=== PATIENT | male | born 1945 | race Caucasian/White ===

== ENCOUNTER 2018-12-27 08:01 | Inpatient (IN) | payer OTHER ==
[2018-12-27] MEDS ORDERED: ACETAMINOPHEN 1000 MG/100 ML VIAL (NON FORMULARY) IVPB ONE (08:32)
--- NOTE | 2018-12-27 08:32 | PDOC ---
History of Present Illness - General Chief Complaint: SIRS, Suspected/Possible Stated Complaint: DIZZINESS Time Seen by Provider: 12/27/18 08:31 History Source: Patient Exam Limitations: Other (poor historian, prior CVAs) - History of Present Illness Initial Comments: Pt is a 73 yo M, with PMH of HTN and CVA (last was June 2017, with L arm deficit), who is presenting via EMS after a fall. Pt is currently undomiciled and has been living in the library per pt. Pt states he was at the library this morning, when he tripped over a step, landing onto his L side. He denies hitting his head or having LOC. Pt states he then tried to walk to [employer] to use the bathroom, and had incontinence of urine and stool, which is unusual for him. He then had LOC and "remembers waking up on the ground" with EMS. Pt states he was in his usual state of health until this morning, but has been eating at the shelters and "ate about 10 hotdogs last night at the [facility]". Pt denies any recent fevers/chills, headache, vision changes, chest pain, palpitations, SOB, nausea/vomiting, abdominal pain, hemauturia/dysuria, blood in his BMs, or leg swelling. Allergies: NKDA PCP: Pt unsure, has not been seen by an MD since his last CVA Social: Pt denies any cigarette, alcohol, or drug use. Pt denies any recent travel or sick contacts. Surgical: no relevant history. Family: no relevant history. 12/27/18 09:23 12/27/18 11:46 Past History - Travel Traveled outside of the country in the last 30 days: No Close contact w/someone who was outside of country & ill: No - Past Medical History Allergies/Adverse Reactions: Allergies Allergy/AdvReac Type Severity Reaction Status Date / Time No Known Allergies Allergy Verified 12/27/18 08:27 CVA: Yes (x3 lt arm contracted) COPD: No HTN: Yes Hypercholesterolemia: Yes - Suicide/Smoking/Psychosocial Hx Smoking History: Never smoked Have you smoked in the past 12 months: No Information on smoking cessation initiated: No Hx Alcohol Use: No Drug/Substance Use Hx: No Review of Systems - Review of Systems Able to Perform ROS?: Yes Is the patient limited Hebrew proficient: No Constitutional: Yes: Weight Stable. No: Chills, Diaphoresis, Fever, Loss of Appetite, Malaise, Weakness HEENTM: No: Recent change in vision, Nose Congestion, Throat Pain, Throat Swelling, Mouth Swelling Respiratory: No: Cough, Orthopnea, Shortness of Breath Cardiac (ROS): Yes: Syncope. No: Chest Pain, Edema, Irregular Heart Rate, Lightheadedness, Palpitations, Chest Tightness ABD/GI: Yes: Diarrhea. No: Constipated, Nausea, Poor Appetite, Poor Fluid Intake, Vomiting : No: Burning, Dysuria, Hematuria, Pain, Urgency Musculoskeletal: Yes: See HPI, Joint Pain (L shoulder pain 2/2 fall), Muscle Weakness (chronic, 2/2 CVA, L hand and contracture L shoulder). No: Back Pain, Muscle Pain Integumentary: No: Rash Neurological: Yes: See HPI, Pre-Existing Deficit, Dizziness. No: Headache, Numbness, Paresthesia, Weakness Psychiatric: No: Sleep Pattern Change, Change in Appetite Endocrine: No: Increased Urine, Change in Weight Hematologic/Lymphatic: Yes: Blood Clots (CVA x3). No: Anemia, Easy Bleeding, Easy Bruising All Other Systems: Reviewed and Negative *Physical Exam - Vital Signs Last Vital Signs Temp Pulse Resp BP Pulse Ox 100.4 F H 101 H 20 136/76 97 12/27/18 08:25 12/27/18 08:25 12/27/18 08:25 12/27/18 08:25 12/27/18 08:25 - Physical Exam Comments: Tachycardic, febrile. Thin body habitus. Pt covered in urine and feces, clothes and skin are dirty. Pt alert and oriented x3. Contracted L shoulder with weakness in L hand (pt baseline). TTP over L anterior shoulder with no crepitus or obvious deformity. install technician generally intact, muscular strength and sensation intact for pt baseline. No midline spinal tenderness, step-offs, or crepitus. Head normocephalic, atraumatic. Eyes PERRLA, EOMI. Oropharynx without erythema or exudates, no LAD b/l. No nasal congestion, hearing intact. Clear heart sounds, S1/S2, no JVD, or heart murmur. +B/l pitting edema to ankles. Clear lung sounds, no respiratory distress, wheezes, crackles, or accessory muscle use. No abdominal or CVA tenderness to palpation, no rebound, no guarding. Abdomen soft, non-distended, and with normoactive bowel sounds. Skin without jaundice or rash. 12/27/18 09:34 12/27/18 10:32 ED Treatment Course - LABORATORY CBC & Chemistry Diagram: 12/27/18 10:20 12/27/18 10:20 Medical Decision Making - Medical Decision Making Pt was seen at bedside, also will be seen by attending Dr. Graves. Pt presenting with profuse diarrhea (continued in ED) and a fall today. Pt febrile and tachycardic. Will evaluate with labs, non-contrast CT head (r/o bleed) and x- rays of L shoulder and humerus where pt has tenderness. Considering viral vs bacterial colitis, diverticulitis, electrolyte imbalances. Pt denies blood in stool, and has no recent hospitalizations or abx use, however is undomiciled and living in the library and shelters. Provided tylenol and 1 L IV NS for improvement of dehydration and fever. Will continue to reassess pt and monitor for symptomatic improvement. ECG: Sinus tachycardia, intervals WNL (HR 102, MO 146, QRS 80, QTc 419). No TWIs or significant ST segment changes. No prior ECG for comparison. 12/27/18 10:37 CBC and CMP generally WNL Lactic 1.5 Mild anemia, no prior for comparison Pt was taken for CTs and x-rays 12/27/18 11:35 CT negative for acute pathology. Called social work for consultation. Paged Dr. Gonzalez's team for admission. 12/27/18 13:[address] Lema team. Pt stable and resting comfortably. 12/27/18 13:34 *DC/Admit/Observation/Transfer Diagnosis at time of Disposition: Homelessness Closed head injury Qualifiers: Encounter type: initial encounter Qualified Code(s): S09.90XA - Unspecified injury of head, initial encounter Fall Qualifiers: Encounter type: initial encounter Qualified Code(s): W19.XXXA - Unspecified fall, initial encounter Diarrhea Qualifiers: Diarrhea type: unspecified type Qualified Code(s): R19.7 - Diarrhea, unspecified - Discharge Dispostion Condition at time of disposition: Stable Decision to Admit order: Yes - Referrals Referrals: Priscilla Daniels [Primary Care Provider] - - Patient Instructions - Post Discharge Activity
[2018-12-27] MEDS ORDERED: ACETAMINOPHEN INJECTION 100 ML IVPB ONE (09:09)
[2018-12-27] MEDS ORDERED: SODIUM CHLORIDE 1,000 ML IV STA (09:16)
[2018-12-27 10:31] LABS: BASO % 0.6 % (0-2.0); EOS % 0.1 % (0-4.5); HEMATOCRIT 34.6 % (35.4-49); HEMOGLOBIN 11.6 GM/dL (11.7-16.9); LYMPH % 10.2 % (8-40); MCH 34.3 pg (25.7-33.7); MCHC 33.6 g/dl (32.0-35.9); MEAN CELL VOLUME 102.1 fl (80-96); MEAN PLT VOLUME 8.8 fl (7.5-11.1); MONO % 11.7 % (3.8-10.2); NEUT % 77.4 % (42.8-82.8); PLATELET COUNT 259 K/MM3 (134-434); RBC 3.39 M/mm3 (4.00-5.60); RDW 13.9 % (11.9-15.9); WHITE BLOOD COUNT 8.4 K/mm3 (4.0-10.0)
[2018-12-27 10:36] LABS: VENOUS PC02 47.2 mmHg (38-52); VENOUS PH 7.39 (7.31-7.41)
[2018-12-27 10:39] LABS: VENOUS PO2 < 49 mmHg (28-48)
[2018-12-27 10:51] LABS: INR 1.25 (0.83-1.09); PROTHROMBIN TIME (PATIENT) 14.8 SEC (9.7-13.0)
[2018-12-27 10:57] LABS: HYALINE CASTS 4 /lpf (0-8); PH,URINE 8.5 (5.0-8.0); URINE APPEARANCE CLEAR; URINE BACTERIA 3.4 /hpf (NEGATIVE); URINE BILIRUBIN NEGATIVE (NEGATIVE); URINE COLOR YELLOW; URINE GLUCOSE (UA) NEGATIVE (NEGATIVE); URINE KETONE NEGATIVE (NEGATIVE); URINE LEUK ESTERASE 1+ (NEGATIVE); URINE NITRITE NEGATIVE (NEGATIVE); URINE PROTEIN TRACE (NEGATIVE); URINE RBC 11 /hpf (0-4); URINE UROBILINOGEN 0.2 mg/dL (0.2-1.0); URINE WBC 23 /hpf (0-5)
[2018-12-27 11:06] LABS: ALBUMIN 3.8 g/dl (3.4-5.0); ALK PHOS 118 U/L (45-117); ANION GAP 5 MMOL/L (8-16); BILIRUBIN,TOTAL 0.5 mg/dL (0.2-1); BLOOD UREA NITROGEN 19.6 mg/dL (7-18); CALCIUM 9.1 mg/dL (8.5-10.1); CHLORIDE 101 mmol/L (98-107); CO2 30 mmol/L (21-32); GLUCOSE,RANDOM 92 mg/dL (74-106); POTASSIUM 3.9 mmol/L (3.5-5.1); SGOT/AST 47 U/L (15-37); SGPT/ALT 35 U/L (13-61); SODIUM 136 mmol/L (136-145); TOT PROT 8.1 g/dl (6.4-8.2)
--- NOTE | 2018-12-27 11:20 | PDOC ---
Documentation entered by Amira Francois SCRIBE, acting as scribe for Sue Graves MD. Sue Graves MD: This documentation has been prepared by the Priscila barahona Adrianna, SCRIBE, under my direction and personally reviewed by me in its entirety. I confirm that the documentation accurately reflects all work, treatment, procedures, and medical decision making performed by me. Attending Attestation - Resident Resident Name: Abigail Andujar - ED Attending Attestation I have performed the following: I have examined & evaluated the patient, The case was reviewed & discussed with the resident, I agree w/resident's findings & plan, Exceptions are as noted - HPI HPI: 12/27/18 10:28 Mr. Carlos is a 73 yo undomiciled M, with PMH of HTN and CVA (last was June 2017 , with L arm deficit), who is presenting via EMS after a fall. Pt can not give me the name of his PMD, his pharmacy or his medications He lives in the library. Today, while at the library, he tripped over a step and landed on his Left side No head trauma No LOC He attempted to get to [employer] to use the bathroom but could not make it there , he was incontinent of urine and stool (new finding) After having diarrhea, he fell and had a LOC. He "remembers waking up on the ground". Pt denies any recent fevers/chills, headache, chest pain, palpitations, SOB, nausea/vomiting, abdominal pain. 12/27/18 10:44 - Physicial Exam PE: 12/27/18 10:05 GENERAL: The patient is in no acute distress, hard of hearing, discheveled, unkept ENT: Ears normal, nares patent, oropharynx clear without exudates. Dry mucous membranes. NECK: Normal range of motion, supple LUNGS: Breath sounds equal, clear to auscultation bilaterally. No wheezes, and no crackles. HEART:Regular rate and rhythm, normal S1 and S2 ABDOMEN: Soft, nontender, normoactive bowel sounds. EXTREMITIES: LUE contracture, otherwise other extremities normal range of motion. minimal lower extremity edema. NEUROLOGICAL: Flattened left nasolabial fold, normal speech, lue contracture SKIN: no rashes or lesions 12/27/18 10:52 - Medical Decision Making 12/27/18 10:54 73 yo M presenting with diarrhea, syncope, weakness and diarrhea Pt presents with a low grade fever Pt is a poor historian Will do: Sepsis work up CXR UA/U CX Stool studies 12/27/18 11:17 Laboratory Tests 12/27/18 12/27/18 12/27/18 08:59 10:20 10:20 WBC 8.4 Hgb 11.6 L Hct 34.6 L Plt Count 259 INR VBG pH 7.39 POC VBG pCO2 47.2 POC VBG pO2 < 49 H VBG HCO3 28.0 BUN 19.6 H Creatinine 1.0 Urine Nitrite Ur Leukocyte Esterase Urine WBC (Auto) Urine RBC (Auto) 12/27/18 12/27/18 10:20 10:48 WBC Hgb Hct Plt Count INR 1.25 H VBG pH POC VBG pCO2 POC VBG pO2 VBG HCO3 BUN Creatinine Urine Nitrite Negative Ur Leukocyte Esterase 1+ H Urine WBC (Auto) 23 Urine RBC (Auto) 11 CXR- pending CT - pending 12/28/18 07:41 CXR - no infiltrate CT head - no ICH Admitted Of note, just prior to being sent upstairs , pt noted to have temp 104 Zosyn ordered Cultures sent RESPIRATORY MEDICINE PHYSICIAN Diaz alerted to fever Clinical impression: diarrhea, initial presentation fever, initial presentation Sepsis, initial presentation
--- NOTE | 2018-12-27 12:41 | EKG ---
Test Reason : Blood Pressure : / mmHG Vent. Rate : 102 BPM Atrial Rate : 102 BPM P-R Int : 146 ms QRS Dur : 080 ms QT Int : 322 ms P-R-T Axes : 042 006 051 degrees QTc Int : 419 ms POOR DATA QUALITY, INTERPRETATION MAY BE ADVERSELY AFFECTED SINUS TACHYCARDIA NONSPECIFIC ST ABNORMALITY ABNORMAL ECG WHEN COMPARED WITH ECG OF 06-OCT-1999 08:58, VENT. RATE HAS INCREASED BY 38 BPM Confirmed by Lawson Shelton MD ([id number]) on 12/27/2018 12:40:58 PM Referred By: Confirmed By:Lawson Shelton MD
[2018-12-27] MEDS ORDERED: IBUPROFEN 600 MG TABLET (FP) PO ONE ×2 (15:22→15:24)
[2018-12-27] MEDS ORDERED: PIPERACILLIN/TAZOB 3.375 GM 3.375 GM in DEXTROSE 5%-WATER - 50 ML IVPB ONE (15:25)
[2018-12-27] MEDS ORDERED: ACETAMINOPHEN 325 MG TABLET (FP) PO PRN (15:26)
[2018-12-27] MEDS ORDERED: PIPERACILLIN/TAZOB 3.375 GM 3.375 GM/50 ML BAG IVPB ONE (15:27)
--- NOTE | 2018-12-27 16:48 | HP ---
Admitting History and Physical - Primary Care Physician PCP: Priscilla Daniels A - Admission Chief Complaint: Mechanical Fall History of Present Illness: Patient is a 73 y/o male with past medical history of HTN and Multiple CVAs. Patient presented to ER after having mechanical fall yesterday, denies hitting head and denies LOC. Patient states he then tried to walk to [employer] and attempted to use bathroom but became incontinent of urine and fecal contents. While in [employer] he then had an episode of dizziness and fell. Patient is undomiciled, does not know which medication he takes for HTN. 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 Cardiovascular: Yes: HTN - Smoking History Smoking history: Never smoked Have you smoked in the past 12 months: No - Alcohol/Substance Use Hx Alcohol Use: No - Social History Usual Living Arrangement: Yes: Other (Undomiciled) ADL: Independent History of Recent Travel: No Home Medications - Allergies Allergies/Adverse Reactions: Allergies Allergy/AdvReac Type Severity Reaction Status Date / Time No Known Allergies Allergy Verified 12/27/18 08:27 - Home Medications Home Medications: Ambulatory Orders Cefuroxime Axetil [Ceftin -] 500 mg PO BID #4 tablet 01/04/19 Doxycycline Hyclate [Vibramycin -] 100 mg PO BID@1000,1800 #4 capsule 01/04/19 Rosuvastatin [Crestor -] 5 mg PO HS #30 tablet 01/04/19 Tamsulosin HCl [Flomax -] 0.4 mg PO DAILY@0830 #30 cap.er.24h 01/04/19 Review of Systems - Review of Systems Constitutional: reports: Weakness Eyes: reports: No Symptoms HENT: reports: No Symptoms Neck: reports: No Symptoms Cardiovascular: reports: No Symptoms Respiratory: reports: No Symptoms Gastrointestinal: reports: Diarrhea Genitourinary: reports: Dysuria Breasts: reports: No Symptoms Reported Musculoskeletal: reports: Muscle Weakness Integumentary: reports: No Symptoms Neurological: reports: Dizziness Endocrine: reports: No Symptoms Hematology/Lymphatic: reports: No Symptoms Psychiatric: reports: No Symptoms Physical Examination Vital Signs: Vital Signs Temperature 104 F H 12/27/18 15:00 Pulse Rate 104 H 12/27/18 15:00 Respiratory Rate 18 12/27/18 15:00 Blood Pressure 131/74 12/27/18 15:00 O2 Sat by Pulse Oximetry (%) 95 12/27/18 15:00 Constitutional: Yes: No Distress, Calm Eyes: Yes: Conjunctiva Clear HENT: Yes: Atraumatic Cardiovascular: Yes: Tachycardia Respiratory: Yes: Regular, CTA Bilaterally Gastrointestinal: Yes: Normal Bowel Sounds, Soft Musculoskeletal: Yes: Muscle Weakness Extremities: Yes: WNL Edema: No Neurological: Yes: Alert, Pre-Existing Deficit, Weakness Psychiatric: Yes: Alert, Oriented Labs: CBC, BMP 12/27/18 10:20 12/27/18 10:20 Imaging - Results Cat Scan: Report Reviewed Problem List - Problems (1) Diarrhea Assessment/Plan: -Stool Cultures and Cdiff ordered -febrile with temp 104F -ID on board -no leukocytosis -IV hydration Code(s): R19.7 - DIARRHEA, UNSPECIFIED Qualifiers: Diarrhea type: unspecified type Qualified Code(s): R19.7 - Diarrhea, unspecified (2) Fall Assessment/Plan: -Fall risk -Neurology and Cardiology consult -Carotid US -Head CT scan shows large area of encephalomalacia in the right posterior temporal as well as in the right frontal lobe extending to the high convexity cuts also involving the right occipital and parietal lobe with exvacuodilatation of the right occipital horn, no gross acute intracranial pathology -PT Code(s): W19.XXXA - UNSPECIFIED FALL, INITIAL ENCOUNTER Qualifiers: Encounter type: initial encounter Qualified Code(s): W19.XXXA - Unspecified fall, initial encounter (3) Homelessness Assessment/Plan: -SW consult Code(s): Z59.0 - HOMELESSNESS (4) Dysuria Assessment/Plan: -UA shows 1+ leuks -UC pending Code(s): R30.0 - DYSURIA (5) Fever Assessment/Plan: -ID on board -Zosyn -no leukocytosis -BC and UC pending Code(s): R50.9 - FEVER, UNSPECIFIED Assessment/Plan see problem list dvt ppx
--- NOTE | 2018-12-27 17:02 | PN ---
Progress Note (short form) - Note Progress Note: ID consult dictated imp/reccd fever to 104 dysuria no rigors alert homeless diarrhea cultures-blood, urine, stool renal/bladder sonogram ivf empiric antibiotics jeimy brock Problem List - Problems (1) Fever Code(s): R50.9 - FEVER, UNSPECIFIED (2) Dysuria Code(s): R30.0 - DYSURIA (3) Diarrhea Code(s): R19.7 - DIARRHEA, UNSPECIFIED Qualifiers: Diarrhea type: unspecified type Qualified Code(s): R19.7 - Diarrhea, unspecified (4) Homelessness Code(s): Z59.0 - HOMELESSNESS
[2018-12-27] MEDS ORDERED: VANCOMYCIN 1 GRAM (PRE-DOCKED) 1,000 MG/250 ML BAG IVPB SCH (17:15)
[2018-12-27] MEDS ORDERED: DEXTROSE 5%-WATER 100 ML IVPB ONE (18:16)
[2018-12-27] MEDS: CEFTRIAXONE 2 GM in DEXTROSE 5%-WATER 100 ML IVPB SCH (18:20)
[2018-12-27] MEDS: SODIUM CHLORIDE 1,000 ML IV SCH (18:30)
--- NOTE | 2018-12-27 19:31 | CONS ---
DATE OF CONSULTATION: DATE OF DICTATION: 12/27/2018 INFECTIOUS DISEASE CONSULTATION REQUESTING PHYSICIAN: Reina Gonzalez M.D. CONSULTING PHYSICIAN: Valarie Mejia M.D. HISTORY OF PRESENT ILLNESS: This patient I am asked to see for fever. He is a 73-year-old man who is homeless. [place] He has a history of hypertension and CVA. Last had a stroke in June 2017 which has left him with an arm weakness. He went to rehabilitation, where he stayed there for almost a year. He thinks he was discharged in the spring of this year. He presented to the emergency room this morning after he had a fall. He was in the library. Apparently he tripped and landed on his left side. He then tried to walk to the [employer] to use the bathroom, but he could not make it. He was incontinent of urine and stool. He then reports per the EMS notes that he had a loss of consciousness and was found on the floor. He has been living in shelters for many years now and [place]. He denies fevers and chills. He denies headache. He denies chest pain, palpitation. Denies any nausea or vomiting or any further episodes of diarrhea. He does note he has a lot of discomfort when he urinates, which has been going on for several months. He has no neck stiffness and no headache. He has no known drug allergies. His PMD is Dr. Priscilla Daniels at [facility]. PAST MEDICAL HISTORY: Notable for hypertension and CVA. He has a history of hyperlipidemia. SOCIAL HISTORY: He denies cigarette, alcohol, or substance use. He is from [place]. He has no history of any travel, and he is homeless. REVIEW OF SYSTEMS: He denies headache. He is not aware he has fever. He has no chills or rigors. Temperature was 104. He has no change in vision. He has no sore throat. He has no cough or shortness of breath. He does note that he had diarrhea which is resolved, and he does note that he has discomfort on urination. PHYSICAL EXAMINATION: Vital Signs: His T-max was 104. Current temperature now is 101.4, pulse of 104, blood pressure 131/74, respiratory rate of 18. He is saturating 95% on room air. HEENT: Normocephalic. Eyes are anicteric. He has no conjunctival hemorrhages. He has no thrush. He has no pharyngitis. Neck: Supple. He has no meningeal signs. Lungs: Clear to auscultation. Heart: Regular rate and rhythm. Abdomen: Soft, nontender. He has very minimal suprapubic discomfort. He has no testicular swelling. Extremities: Without edema. Skin: He has no rash. He has no skin breakdown or skin tears. LABORATORY: Notable for white count of 8.4, hemoglobin 11.6, platelets of 259. INR is 1.2, BUN and creatinine are 19 and 1. LFTs are notable for AST of 47 and alkaline phosphatase of 118. Troponins are pending. Urinalysis has 1+ leukocytes and 23 white cells. Urine and blood cultures are pending. Head CT is noted for prior infarct. Chest x-rays without any infiltrate, and x-ray of the humerus reveals no fracture. IMPRESSION: In summary, this is an elderly man with high-grade fever. He is quite asymptomatic, does not even feel hot, has no rigors, is not hypotensive, and has no headache. His labs are notable for normal white count and some pyuria. Would suggest at this time that we treat him with vancomycin 1 dose and ceftriaxone to cover for urinary pathogens. Would obtain a renal bladder sonogram as he states he has discomfort on urination and continue intravenous fluids. Further recommendations to follow based on his clinical course. Lauri [id number]
[2018-12-27 21:00] VITALS: BMI 20.2
[2018-12-27] MEDS: HEPARIN NA (PORCINE) 5,000 UNITS/ML 1ML VIAL SQ SCH (21:59)
[2018-12-27] MEDS ORDERED: SODIUM CHLORIDE 250 ML IV STA (23:39)
[2018-12-28] MEDS: SODIUM CHLORIDE 1,000 ML IV SCH ×2 (06:23→22:14)
[2018-12-28] MEDS ORDERED: INSULIN (NOVOLOG) ASPART 100 UNITS/ML 10ML VIAL ONE ×2 (06:41→12:10)
[2018-12-28 07:12] LABS: BASO % 0.2 % (0-2.0); HEMATOCRIT 33.9 % (35.4-49); HEMOGLOBIN 11.1 GM/dL (11.7-16.9); MCH 33.8 pg (25.7-33.7); MCHC 32.8 g/dl (32.0-35.9); MEAN CELL VOLUME 103.1 fl (80-96); MEAN PLT VOLUME 9.3 fl (7.5-11.1); MONO % 5.6 % (3.8-10.2); NEUT % 91.2 % (42.8-82.8); PLATELET COUNT 165 K/MM3 (134-434); RBC 3.29 M/mm3 (4.00-5.60); RDW 13.9 % (11.9-15.9); WHITE BLOOD COUNT 18.6 K/mm3 (4.0-10.0)
[2018-12-28 07:29] LABS: ALBUMIN 2.7 g/dl (3.4-5.0); BILIRUBIN,TOTAL 0.6 mg/dL (0.2-1); CALCIUM 7.9 mg/dL (8.5-10.1); CREATININE 1.3 mg/dL (0.55-1.3); MAGNESIUM 1.6 mg/dL (1.8-2.4); PHOSPHOROUS 3.3 mg/dL (2.5-4.9); POTASSIUM 3.7 mmol/L (3.5-5.1); TOT PROT 6.4 g/dl (6.4-8.2)
--- NOTE | 2018-12-28 10:38 | CONSULT ---
Consult - text type - Consultation Consultation Note: NEUROLOGY CONSULT GREATLY APPRECIATED: This 73 yo RH homeless man has pmhx CVA x 3 with residual left sided hemiparesis and HTN. Admitted after two falls, one he describes without prodromata or LOC in which he "missed the step" walking down a step and fell on his left side. On a second occasion, he was warned by "lightheadedness" while ambulating to a public restroom and fell to the floor with possible LOC. Head CT (reviewed): Moderate diffuse cerebral atrophy with ex vacuo ventricular dilation. Large area of encephalomalacia in R posterior temporal, parietal and occiptal lobe (c/w old right MCA-territory CVA). Calcified intracranial vessels. Carotid duplex: Mod plaques at RCC and LCC without significant stenosis EKG sinus tach WBC 8.4 -> 18.6; MCV 103.1; TSH 0.83; MG= 1.6; Phos 3.3; Urine WBC= 23 JILLIAN: BP 80/47-> 100/55; T 98.6-104; Neg Kernig's. Cor reg. No bruit. Excoriation to back of neck. No evidence of head trauma. NEURO: Awake, alert, [place]. Ox [facility]. December ", Wed or " 2018. TRUMP. Poor reversals. 2/3 recall @ 3 min. + glabella. CNII-CNXII: Reduced threat to blink from left. EOM's full with full mcgarry. No facial. Gag ok. Motor: Spastic hemiparesis on L arm > leg. Otherwise strength normal. Hyperreflexic L > R with AJ's present. Toes downgoing. Coordination: No R FTN dystaxia. Sensation: Reduced vibration to ankles. Romberg positive. Gait: Wide based, sl waddle. Impression: Mild B/L cerebreal dysfunction. Multifocal gait ataxia with contributions of: 1. Old extensive R CVA with spastic left hemiparesis 2. Peripheral Neuropathy (nutritional) 3. R/O arrythmia Worsened by Toxic-Metabolic Encephalopathy (? sepsis). R/O Wernicke's (can cause hypotension and hyperthermia). Suggest: Continue antibiotics and hydration per ID Orthostatic BP's Add thiamine 250 mg po IVPB q8H x 3 days Check B12, A1c. Replenish lytes and monitor. Await cardiology eval fitness services manager for placement. Thank you very much, Robert Young MD
[2018-12-28 11:38] LABS: ANISOCYTOSIS 0; MACROCYTOSIS 1+; OVALOCYTE 1+
[2018-12-28] MEDS ORDERED: DEXTROSE 5%-WATER 100 ML IVPB ONE (11:50)
[2018-12-28] MEDS: CEFTRIAXONE 2 GM in DEXTROSE 5%-WATER 100 ML IVPB SCH (11:57)
[2018-12-28] MEDS: HEPARIN NA (PORCINE) 5,000 UNITS/ML 1ML VIAL SQ SCH ×2 (11:59→22:15)
[2018-12-28 12:05] LABS: PLATELET ESTIMATE ADEQUATE
[2018-12-28] MEDS: THIAMINE HCL 200 MG/2 ML VIAL IVPB SCH ×2 (14:55→22:13)
--- NOTE | 2018-12-28 15:01 | PN ---
Progress Note (short form) - Note Progress Note: much more alert, afebrile no more fever persistent dysuria diarrhea has resolved Vital Signs Period Temp Pulse Resp BP Sys/Cano Pulse Ox Last 24 Hr 98.0 F-101.5 F 61-93 18-18 80-120/42-61 95-98 cor-rrr lungs clear abd soft,nt +suprapubic pain ext no edema renal/bladder sono-?debris in bladder CBC, BMP 12/28/18 06:34 12/28/18 06:34 Microbiology 12/27/18 10:20 Blood - Peripheral Venous Blood Culture - Preliminary NO GROWTH OBTAINED AFTER 24 HOURS, INCUBATION TO CONTINUE FOR 4 DAYS. 12/27/18 10:20 Blood - Peripheral Venous Blood Culture - Preliminary NO GROWTH OBTAINED AFTER 24 HOURS, INCUBATION TO CONTINUE FOR 4 DAYS. 12/27/18 10:48 Urine - Urine Clean Catch Urine Culture - Final NO GROWTH OBTAINED imp/reccd leukocytosis fever to [address] abd/pelvis continue ceftriaxone Problem List - Problems (1) Fever Code(s): R50.9 - FEVER, UNSPECIFIED (2) Dysuria Code(s): R30.0 - DYSURIA (3) Diarrhea Code(s): R19.7 - DIARRHEA, UNSPECIFIED Qualifiers: Diarrhea type: unspecified type Qualified Code(s): R19.7 - Diarrhea, unspecified (4) Homelessness Code(s): Z59.0 - HOMELESSNESS
--- NOTE | 2018-12-28 15:46 | CON.CARD ---
Consult Consult Specialty:: Cardiology Referred by:: Torey Reason for Consultation:: Dizziness - History of Present Illness Chief Complaint: Fall History of Present Illness: 73 year old male with a pmhx of htn and cva here with fall and dizziness. As per patient who is a poor historian, he was headed [place] [employer] when he developed incontinent (both bowel and urine). He then felt dizzy and fell. Denies any LOC or head trauma. No chest pain, sob, or palpitations. No pnd, orthopnea, or edema. Denies any cardiac history. Does not know his meds (says his friend has them). Denies etoh or drug use. 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 Cardio/Vascular: Yes: HTN - Alcohol/Substance Use Hx Alcohol Use: No - Smoking History Smoking history: Never smoked Have you smoked in the past 12 months: No - Social History ADL: Independent History of Recent Travel: No Home Medications - Allergies Allergies/Adverse Reactions: Allergies Allergy/AdvReac Type Severity Reaction Status Date / Time No Known Allergies Allergy Verified 12/27/18 08:27 - Home Medications Home Medications: Ambulatory Orders NK [No Known Home Medication] 12/27/18 Vital Signs: Vital Signs Temperature 98.6 F 12/28/18 07:10 Pulse Rate 85 12/28/18 11:30 Respiratory Rate 18 12/28/18 07:10 Blood Pressure 90/46 L 12/28/18 11:30 O2 Sat by Pulse Oximetry (%) 98 12/27/18 21:00 Constitutional: Yes: No Distress, Poor Hygeine Neck: Yes: Supple Respiratory: Yes: CTA Bilaterally Gastrointestinal: Yes: Soft Cardiovascular: Yes: Regular Rate and Rhythm JVD: No Carotid Bruit: No PMI: Non-Displaced Heart Sounds: Yes: S1, S2 Murmur: No: Systolic Murmur Edema: No - Other Data Labs, Other Data: CBC, BMP 12/28/18 06:34 12/28/18 06:34 INR, PTT INR 1.25 (0.83-1.09) H 12/27/18 10:20 Troponin, BNP 12/27/18 10:20 Troponin I < 0.02 Troponin, BNP 12/27/18 10:20 Troponin I < 0.02 Imaging - Results Chest X-ray: Report Reviewed EKG: Image Reviewed Problem List - Problems (1) Fall Code(s): W19.XXXA - UNSPECIFIED FALL, INITIAL ENCOUNTER Qualifiers: Encounter type: initial encounter Qualified Code(s): W19.XXXA - Unspecified fall, initial encounter Assessment/Plan 73 year old male with a pmhx of htn and cva here with fall and dizziness. As per patient who is a poor historian, he was headed [place] [employer] when he developed incontinent (both bowel and urine). He then felt dizzy and fell. Denies any LOC or head trauma. No chest pain, sob, or palpitations. No pnd, orthopnea, or edema. Denies any cardiac history. Does not know his meds (says his friend has them). Denies etoh or drug use. 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 1) Dizziness -Likely in the setting of hypovolemia as seen with low SBP/orthostatics in setting of possible infection given elevated wbc 18 and febrile with diarrhea. IVF's Abx and infection work up as per primary team. -No chest pain or signs of chf on exam. EKG no acute changes. Carotids no stenosis. No significant murmurs on exam. -Can have an echocardiogram during admission.
--- NOTE | 2018-12-28 16:49 | PN ---
Progress Note, Physician Chief Complaint: Mechanical Fall Fever Leukocytosis History of Present Illness: Previous notes and events reviewed awake and alert NAD complain of urinary frequency and dysuria afebrile today leukocytosis - Current Medication List Current Medications: Active Medications Acetaminophen (Tylenol -) 650 mg PO Q4H PRN PRN Reason: FEVER Heparin Sodium (Porcine) (Heparin -) 5,000 unit SQ BID [facility] Last Admin: 12/28/18 11:59 Dose: 5,000 unit Ceftriaxone Sodium 2 gm/ (Dextrose) 100 mls @ 200 mls/hr IVPB DAILY [facility]; Protocol Last Admin: 12/28/18 11:57 Dose: 200 mls/hr Vancomycin HCl (Vancomycin (Pre-Docked)) 1,000 mg in 250 mls @ 166.667 mls/hr IVPB ONCE [facility]; Protocol Stop: 12/28/18 17:14 Last Admin: 12/27/18 18:42 Dose: 166.667 mls/hr Sodium Chloride (Normal Saline -) 1,000 mls @ 75 mls/hr IV ASDIR [facility] Last Admin: 12/28/18 06:23 Dose: 75 mls/hr Thiamine HCl (Vitamin B1 Injection -) 250 mg IVPB TID [facility] Stop: 12/31/18 13:59 Last Admin: 12/28/18 14:55 Dose: 250 mg - Objective Vital Signs: Vital Signs Temperature 98.6 F 12/28/18 07:10 Pulse Rate 85 12/28/18 11:30 Respiratory Rate 18 12/28/18 07:10 Blood Pressure 90/46 L 12/28/18 11:30 O2 Sat by Pulse Oximetry (%) 98 12/27/18 21:00 Constitutional: Yes: No Distress, Calm Eyes: Yes: Conjunctiva Clear HENT: Yes: Atraumatic Cardiovascular: Yes: Regular Rate and Rhythm Respiratory: Yes: Regular, CTA Bilaterally Gastrointestinal: Yes: Normal Bowel Sounds, Soft, Tenderness (suprapubic) Genitourinary: Yes: Incontinence Musculoskeletal: Yes: Muscle Weakness Extremities: Yes: WNL Edema: No Neurological: Yes: Alert, Weakness (L side deficit) Psychiatric: Yes: Alert Labs: CBC, BMP 12/28/18 06:34 12/28/18 06:34 INR, PTT INR 1.25 (0.83-1.09) H 09/03/19 10:20 Microbiology 12/27/18 10:20 Blood - Peripheral Venous Blood Culture - Preliminary NO GROWTH OBTAINED AFTER 24 HOURS, INCUBATION TO CONTINUE FOR 4 DAYS. 12/27/18 10:20 Blood - Peripheral Venous Blood Culture - Preliminary NO GROWTH OBTAINED AFTER 24 HOURS, INCUBATION TO CONTINUE FOR 4 DAYS. 12/27/18 10:48 Urine - Urine Clean Catch Urine Culture - Final NO GROWTH OBTAINED Problem List - Problems (1) Diarrhea Assessment/Plan: -Stool Cultures and Cdiff pending -resolved -ID on board -leukocytosis -IV hydration Code(s): R19.7 - DIARRHEA, UNSPECIFIED Qualifiers: Diarrhea type: unspecified type Qualified Code(s): R19.7 - Diarrhea, unspecified (2) Fall Assessment/Plan: -Fall risk -Neurology and Cardiology consult -Carotid US shows moderate to large plaque with calcificationsat the right common carotid bifurcation/bulb without evidence of hemodynamically significant stenosis, moderate size plaque to at denny left common carotid bifurcation buld without evidence of hemodynamically significant stenosis -Head CT scan shows large area of encephalomalacia in the right posterior temporal as well as in the right frontal lobe extending to the high convexity cuts also involving the right occipital and parietal lobe with exvacuodilatation of the right occipital horn, no gross acute intracranial pathology -PT Code(s): W19.XXXA - UNSPECIFIED FALL, INITIAL ENCOUNTER Qualifiers: Encounter type: initial encounter Qualified Code(s): W19.XXXA - Unspecified fall, initial encounter (3) Homelessness Assessment/Plan: -SW consult Code(s): Z59.0 - HOMELESSNESS (4) Dysuria Assessment/Plan: -UA shows 1+ leuks -UC neg -Bladder US shws moderately distended urinary bladder wall without thickening, there are debris lying posteriorly--Urology consult Code(s): R30.0 - DYSURIA (5) Fever Assessment/Plan: -ID on board -Vancomycin and Ceftriaxone -leukocytosis WBC 18.5 -BC and UC neg -Abd/Pelvic CT scan Code(s): R50.9 - FEVER, UNSPECIFIED Assessment/Plan see problem list dvt ppx
[2018-12-28] MEDS: ROSUVASTATIN CA 5 MG TABLET (FP) PO SCH (22:13)
[2018-12-29] MEDS: THIAMINE HCL 200 MG/2 ML VIAL IVPB SCH ×3 (05:15→21:25)
[2018-12-29 07:39] LABS: HEMATOCRIT 35.2 % (35.4-49); HEMOGLOBIN 11.8 GM/dL (11.7-16.9); MCH 34.6 pg (25.7-33.7); MCHC 33.6 g/dl (32.0-35.9); MEAN PLT VOLUME 9.6 fl (7.5-11.1); PLATELET COUNT 140 K/MM3 (134-434); RBC 3.42 M/mm3 (4.00-5.60); RDW 14.1 % (11.9-15.9); WHITE BLOOD COUNT 10.1 K/mm3 (4.0-10.0)
[2018-12-29 07:55] LABS: ALBUMIN 2.6 g/dl (3.4-5.0); BILIRUBIN,TOTAL 0.3 mg/dL (0.2-1); BLOOD UREA NITROGEN 21.2 mg/dL (7-18); CALCIUM 8.2 mg/dL (8.5-10.1); CREATININE 0.9 mg/dL (0.55-1.3); POTASSIUM 3.5 mmol/L (3.5-5.1); TOT PROT 6.5 g/dl (6.4-8.2)
[2018-12-29] MEDS ORDERED: DEXTROSE 5%-WATER 100 ML IVPB ONE (09:37)
[2018-12-29] MEDS: CEFTRIAXONE 2 GM in DEXTROSE 5%-WATER 100 ML IVPB SCH (09:56)
[2018-12-29] MEDS: HEPARIN NA (PORCINE) 5,000 UNITS/ML 1ML VIAL SQ SCH ×2 (09:57→21:25)
--- NOTE | 2018-12-29 12:50 | PN ---
Progress Note, Physician Chief Complaint: Mechanical Fall Fever Leukocytosis History of Present Illness: Previous notes and events reviewed awake and alert NAD complain of urinary frequency and dysuria low grade fever this morning leukocytosis--WBC trending down to 10.1 - Current Medication List Current Medications: Active Medications Acetaminophen (Tylenol -) 650 mg PO Q4H PRN PRN Reason: FEVER Heparin Sodium (Porcine) (Heparin -) 5,000 unit SQ BID [facility] Last Admin: 12/29/18 09:57 Dose: 5,000 unit Ceftriaxone Sodium 2 gm/ (Dextrose) 100 mls @ 200 mls/hr IVPB DAILY [facility]; Protocol Last Admin: 12/29/18 09:56 Dose: 200 mls/hr Sodium Chloride (Normal Saline -) 1,000 mls @ 75 mls/hr IV ASDIR [facility] Last Admin: 12/28/18 22:14 Dose: 75 mls/hr Rosuvastatin Calcium (Crestor -) 5 mg PO HS [facility] Last Admin: 12/28/18 22:13 Dose: 5 mg Thiamine HCl (Vitamin B1 Injection -) 250 mg IVPB TID [facility] Stop: 12/31/18 13:59 Last Admin: 12/29/18 05:15 Dose: 250 mg - Objective Vital Signs: Vital Signs Temperature 99.9 F H 12/29/18 09:38 Pulse Rate 74 12/29/18 09:38 Respiratory Rate 18 12/29/18 09:38 Blood Pressure 122/74 12/29/18 09:38 O2 Sat by Pulse Oximetry (%) 95 12/29/18 09:00 Constitutional: Yes: No Distress Eyes: Yes: Conjunctiva Clear HENT: Yes: Atraumatic Cardiovascular: Yes: Regular Rate and Rhythm Respiratory: Yes: Regular, CTA Bilaterally Gastrointestinal: Yes: Normal Bowel Sounds, Soft Genitourinary: Yes: Incontinence Musculoskeletal: Yes: Muscle Weakness Extremities: Yes: WNL Edema: No Neurological: Yes: Alert, Pre-Existing Deficit, Weakness (L Side deficit) Psychiatric: Yes: Alert Labs: CBC, BMP 12/29/18 06:20 12/29/18 06:20 INR, PTT INR 1.25 (0.83-1.09) H 12/27/18 10:20 Microbiology 12/28/18 12:53 Stool Salmonella/Shigella Culture - Preliminary NO ENTERIC PATHOGENS, 24 HOURS, ON PRIMARY PLATES 12/28/18 12:53 Stool Yersinia Culture - Preliminary NO ENTERIC PATHOGENS, 24 HOURS, ON PRIMARY PLATES 12/28/18 12:53 Stool Vibrio Culture - Final NO GROWTH OF VIBRIO SPECIES OBTAINED 12/28/18 12:53 Stool Escherichia coli 0157 Culture - Final NO GROWTH OF E COLI 0157 OBTAINED 12/27/18 10:20 Blood - Peripheral Venous Blood Culture - Preliminary NO GROWTH OBTAINED AFTER 48 HOURS, INCUBATION TO CONTINUE FOR 3 DAYS. 12/27/18 10:20 Blood - Peripheral Venous Blood Culture - Preliminary NO GROWTH OBTAINED AFTER 48 HOURS, INCUBATION TO CONTINUE FOR 3 DAYS. 12/27/18 10:48 Urine - Urine Clean Catch Urine Culture - Final NO GROWTH OBTAINED Problem List - Problems (1) Diarrhea Assessment/Plan: -Stool Cultures and Cdiff neg -resolved -ID on board -leukocytosis -IV hydration Code(s): R19.7 - DIARRHEA, UNSPECIFIED Qualifiers: Diarrhea type: unspecified type Qualified Code(s): R19.7 - Diarrhea, unspecified (2) Fall Assessment/Plan: -Fall risk -Neurology and Cardiology consult -Carotid US shows moderate to large plaque with calcificationsat the right common carotid bifurcation/bulb without evidence of hemodynamically significant stenosis, moderate size plaque to at denny left common carotid bifurcation buld without evidence of hemodynamically significant stenosis -Head CT scan shows large area of encephalomalacia in the right posterior temporal as well as in the right frontal lobe extending to the high convexity cuts also involving the right occipital and parietal lobe with exvacuodilatation of the right occipital horn, no gross acute intracranial pathology -PT Code(s): W19.XXXA - UNSPECIFIED FALL, INITIAL ENCOUNTER Qualifiers: Encounter type: initial encounter Qualified Code(s): W19.XXXA - Unspecified fall, initial encounter (3) Homelessness Assessment/Plan: -SW consult Code(s): Z59.0 - HOMELESSNESS (4) Dysuria Assessment/Plan: -UA shows 1+ leuks -UC neg -Bladder US shws moderately distended urinary bladder wall without thickening, there are debris lying posteriorly--Urology consult Code(s): R30.0 - DYSURIA (5) Fever Assessment/Plan: -ID on board -Vancomycin and Ceftriaxone -leukocytosis WBC 10.1 -BC and UC neg -Abd/Pelvic CT scan Code(s): R50.9 - FEVER, UNSPECIFIED Assessment/Plan see problem list dvt ppx
--- NOTE | 2018-12-29 12:58 | CON.GU ---
Consult Consult Specialty:: Reason for Consultation:: bladder debris - History of Present Illness History of Present Illness: 73 y/o male with past medical history of HTN and Multiple CVAs. Patient presented to ER after having mechanical fall yesterday, denies hitting head and denies LOC. Patient states he then tried to walk to [employer] and attempted to use bathroom but became incontinent of urine and fecal contents. While in [employer] he then had an episode of dizziness and fell. Patient is undomiciled, does not know which medication he takes for HTN. cons req for bladder debris on u/s. 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 Cardio/Vascular: Yes: HTN - Alcohol/Substance Use Hx Alcohol Use: No - Smoking History Smoking history: Never smoked Have you smoked in the past 12 months: No - Social History ADL: Independent History of Recent Travel: No Home Medications - Allergies Allergies/Adverse Reactions: Allergies Allergy/AdvReac Type Severity Reaction Status Date / Time No Known Allergies Allergy Verified 12/27/18 08:27 - Home Medications Home Medications: Ambulatory Orders NK [No Known Home Medication] 12/27/18 Physical Exam- Vital Signs: Vital Signs Temperature 99.9 F H 12/29/18 09:38 Pulse Rate 74 12/29/18 09:38 Respiratory Rate 18 12/29/18 09:38 Blood Pressure 122/74 12/29/18 09:38 O2 Sat by Pulse Oximetry (%) 95 12/29/18 09:00 Labs: CBC, BMP 12/29/18 06:20 12/29/18 06:20 Imaging - Results Ultrasound: Report Reviewed Problem List - Problems (1) Sterile pyuria Assessment/Plan: iv abxs, await CT AP Code(s): N39.0 - URINARY TRACT INFECTION, SITE NOT SPECIFIED (2) Dysuria Code(s): R30.0 - DYSURIA
--- NOTE | 2018-12-29 13:47 | ECHO ---
Name: PHILLIP SHANA Exam:Adult Echocardiogram Study Date: 12/29/2018 08:05 AM Age: 73 yrs Reason For Study: near syncope Height: 71 in Weight: 145 lb BSA: 1.8 m2 MMode/2D Measurements & Calculations IVSd: 0.73 cm Ao root diam: 2.6 cm LVIDd: 3.5 cm LA dimension: 2.2 cm LVIDs: 2.0 cm LVPWd: 0.78 cm EDV(Teich): 51.9 ml LVOT diam: 2.0 cm ESV(Teich): 13.3 ml LAV (MOD-bp): 39.9 ml Doppler Measurements & Calculations MV E max cy: 83.9 cm/sec Ao V2 max: 156.1 cm/sec MV A max cy: 94.1 cm/sec Ao max P.7 mmHg MV E/A: 0.89 AI P1/2t: 460.2 msec MV dec time: 0.19 sec NATHALIA(V,D): 2.4 cm2 AI max cy: 451.6 cm/sec LV V1 max P.9 mmHg AI max P.6 mmHg LV V1 max: 121.3 cm/sec AI dec slope: 287.4 cm/sec2 MR max cy: 526.7 cm/sec TR max cy: 240.6 cm/sec MR max P.8 mmHg TR max P.3 mmHg PA V2 max: 95.0 cm/sec Med Peak E' Cy: 8.6 cm/sec PA max P.6 mmHg Med E/e': 9.8 Lat Peak E' Cy: 9.9 cm/sec Lat E/e': 8.5 Procedure A complete two-dimensional transthoracic echocardiogram was performed (2D, M-mode, Doppler and color flow Doppler). Left Ventricle The left ventricular size, thickness and function are normal. The left ventricular ejection fraction is normal. Ejection Fraction = 55-60%. The left ventricular wall motion is normal. Right Ventricle The right ventricle is normal in size and function. Atria Normal left and right atrial size and function. Mitral Valve There is mild mitral regurgitation. Tricuspid Valve There is trace tricuspid regurgitation. Right ventricular systolic pressure is normal. Aortic Valve No hemodynamically significant valvular aortic stenosis. Trace aortic regurgitation. Pulmonic Valve There is no pulmonic valvular regurgitation. Great Vessels The aortic root is normal size. Pericardium/Pleura There is no pericardial effusion. Interpretation Summary The left ventricular size, thickness and function are normal The right ventricle is normal in size and function. There is mild mitral regurgitation. There is trace tricuspid regurgitation. Trace aortic regurgitation. MD Tre Holt 12/29/2018 01:46 PM
--- NOTE | 2018-12-29 14:54 | PN ---
Progress Note, Physician Chief Complaint: No events overnight Complaints of dysuria. No chest pain or sob. History of Present Illness: 73 year old male with a pmhx of htn and cva here with fall and dizziness. As per patient who is a poor historian, he was headed [place] [employer] when he developed incontinent (both bowel and urine). He then felt dizzy and fell. Denies any LOC or head trauma. No chest pain, sob, or palpitations. No pnd, orthopnea, or edema. Denies any cardiac history. Does not know his meds (says his friend has them). Denies etoh or drug use. 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 - Current Medication List Current Medications: Active Medications Acetaminophen (Tylenol -) 650 mg PO Q4H PRN PRN Reason: FEVER Heparin Sodium (Porcine) (Heparin -) 5,000 unit SQ BID [facility] Last Admin: 12/29/18 09:57 Dose: 5,000 unit Ceftriaxone Sodium 2 gm/ (Dextrose) 100 mls @ 200 mls/hr IVPB DAILY [facility]; Protocol Last Admin: 12/29/18 09:56 Dose: 200 mls/hr Sodium Chloride (Normal Saline -) 1,000 mls @ 75 mls/hr IV ASDIR [facility] Last Admin: 12/28/18 22:14 Dose: 75 mls/hr Rosuvastatin Calcium (Crestor -) 5 mg PO HS [facility] Last Admin: 12/28/18 22:13 Dose: 5 mg Thiamine HCl (Vitamin B1 Injection -) 250 mg IVPB TID [facility] Stop: 12/31/18 13:59 Last Admin: 12/29/18 13:06 Dose: 250 mg - Objective Vital Signs: Vital Signs Temperature 99.9 F H 12/29/18 09:38 Pulse Rate 74 12/29/18 09:38 Respiratory Rate 18 12/29/18 09:38 Blood Pressure 122/74 12/29/18 09:38 O2 Sat by Pulse Oximetry (%) 95 12/29/18 09:00 Constitutional: Yes: No Distress Neck: Yes: Supple Cardiovascular: Yes: Regular Rate and Rhythm, S1, S2. No: JVD, Murmur Respiratory: Yes: CTA Bilaterally Gastrointestinal: Yes: Soft Edema: No Labs: CBC, BMP 12/29/18 06:20 12/29/18 06:20 INR, PTT INR 1.25 (0.83-1.09) H 12/27/18 10:20 Problem List - Problems (1) Fall Code(s): W19.XXXA - UNSPECIFIED FALL, INITIAL ENCOUNTER Qualifiers: Encounter type: initial encounter Qualified Code(s): W19.XXXA - Unspecified fall, initial encounter Assessment/Plan 73 year old male with a pmhx of htn and cva here with fall and dizziness. As per patient who is a poor historian, he was headed to [employer] when he developed incontinent (both bowel and urine). He then felt dizzy and fell. Denies any LOC or head trauma. No chest pain, sob, or palpitations. No pnd, orthopnea, or edema. Denies any cardiac history. Does not know his meds (says his friend has them). Denies etoh or drug use. 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 1) Dizziness -Likely in the setting of hypovolemia as seen with low SBP/orthostatics in setting of possible infection given elevated wbc 18 and febrile with diarrhea. IVF's Abx and infection work up as per primary team. -No chest pain or signs of chf on exam. EKG no acute changes. Carotids no stenosis. No significant murmurs on exam. -Echocardiogram demonstrated normal LVEF and no significant valve disease Will sign off at this time.
--- NOTE | 2018-12-29 15:42 | PN ---
Progress Note (short form) - Note Progress Note: doing well eating lunch just got back from ct scan still with dysuria Vital Signs Period Temp Pulse Resp BP Sys/Cano Pulse Ox Last 24 Hr 98.2 F-99.9 F 68-88 18-18 110-140/55-74 95-98 cor-rrr lungs clear abd soft,nt ext no edema CBC, BMP 12/29/18 06:20 12/29/18 06:20 Microbiology 12/28/18 12:53 Stool Salmonella/Shigella Culture - Preliminary NO ENTERIC PATHOGENS, 24 HOURS, ON PRIMARY PLATES 12/28/18 12:53 Stool Yersinia Culture - Preliminary NO ENTERIC PATHOGENS, 24 HOURS, ON PRIMARY PLATES 12/28/18 12:53 Stool Vibrio Culture - Final NO GROWTH OF VIBRIO SPECIES OBTAINED 12/28/18 12:53 Stool Escherichia coli 0157 Culture - Final NO GROWTH OF E COLI 0157 OBTAINED 12/27/18 10:20 Blood - Peripheral Venous Blood Culture - Preliminary NO GROWTH OBTAINED AFTER 48 HOURS, INCUBATION TO CONTINUE FOR 3 DAYS. 12/27/18 10:20 Blood - Peripheral Venous Blood Culture - Preliminary NO GROWTH OBTAINED AFTER 48 HOURS, INCUBATION TO CONTINUE FOR 3 DAYS. 12/27/18 10:48 Urine - Urine Clean Catch Urine Culture - Final NO GROWTH OBTAINED Current Medications Acetaminophen (Tylenol -) 650 mg PO Q4H PRN PRN Reason: FEVER Heparin Sodium (Porcine) (Heparin -) 5,000 unit SQ BID [facility] Last Admin: 12/29/18 09:57 Dose: 5,000 unit Ceftriaxone Sodium 2 gm/ (Dextrose) 100 mls @ 200 mls/hr IVPB DAILY [facility]; Protocol Last Admin: 12/29/18 09:56 Dose: 200 mls/hr Sodium Chloride (Normal Saline -) 1,000 mls @ 75 mls/hr IV ASDIR [facility] Last Admin: 12/28/18 22:14 Dose: 75 mls/hr Rosuvastatin Calcium (Crestor -) 5 mg PO HS [facility] Last Admin: 12/28/18 22:13 Dose: 5 mg Thiamine HCl (Vitamin B1 Injection -) 250 mg IVPB TID [facility] Stop: 12/31/18 13:59 Last Admin: 12/29/18 13:06 Dose: 250 mg imp/reccd leukocytosis fever to [address] abd/pelvis continue ceftriaxone day #3 Problem List - Problems (1) Fever Code(s): R50.9 - FEVER, UNSPECIFIED (2) Dysuria Code(s): R30.0 - DYSURIA (3) Diarrhea Code(s): R19.7 - DIARRHEA, UNSPECIFIED Qualifiers: Diarrhea type: unspecified type Qualified Code(s): R19.7 - Diarrhea, unspecified (4) Homelessness Code(s): Z59.0 - HOMELESSNESS
[2018-12-29] MEDS: SODIUM CHLORIDE 1,000 ML IV SCH (21:24)
[2018-12-29] MEDS: ROSUVASTATIN CA 5 MG TABLET (FP) PO SCH (21:25)
[2018-12-30] MEDS: THIAMINE HCL 200 MG/2 ML VIAL IVPB SCH ×2 (05:24→15:00)
[2018-12-30 07:46] LABS: ALBUMIN 2.7 g/dl (3.4-5.0); BILIRUBIN,TOTAL 0.3 mg/dL (0.2-1); BLOOD UREA NITROGEN 15.6 mg/dL (7-18); CALCIUM 8.4 mg/dL (8.5-10.1); CREATININE 0.8 mg/dL (0.55-1.3); HEMATOCRIT 34.9 % (35.4-49); HEMOGLOBIN 11.7 GM/dL (11.7-16.9); MCH 34.3 pg (25.7-33.7); MCHC 33.6 g/dl (32.0-35.9); MEAN CELL VOLUME 102.1 fl (80-96); MEAN PLT VOLUME 9.2 fl (7.5-11.1); PLATELET COUNT 119 K/MM3 (134-434); POTASSIUM 3.8 mmol/L (3.5-5.1); RBC 3.41 M/mm3 (4.00-5.60); RDW 13.8 % (11.9-15.9); TOT PROT 6.5 g/dl (6.4-8.2)
[2018-12-30] MEDS ORDERED: PT OWN MED DRAWER 7, Y5N ONE ×2 (10:53→18:18)
[2018-12-30] MEDS ORDERED: DEXTROSE 5%-WATER 100 ML IVPB ONE (10:54)
[2018-12-30] MEDS: HEPARIN NA (PORCINE) 5,000 UNITS/ML 1ML VIAL SQ SCH ×2 (10:58→21:46)
--- NOTE | 2018-12-30 11:46 | PN ---
Progress Note (short form) - Note Progress Note: doing well still with dysuria Vital Signs Period Temp Pulse Resp BP Sys/Cano Pulse Ox Last 24 Hr 98.2 F-99.0 F 67-76 18-18 117-140/58-73 95 cor-rrr lungs clear abd soft,nt ext no edema CBC, BMP 12/30/18 07:00 12/30/18 07:00 Microbiology 12/28/18 12:53 Stool Salmonella/Shigella Culture - Final NO GROWTH OF SALMONELLA OR SHIGELLA SPECIES OBTAINED 12/28/18 12:53 Stool Campylobacter Culture - Final NO GROWTH OF CAMPYLOBACTER SPECIES OBTAINED 12/28/18 12:53 Stool Yersinia Culture - Final NO GROWTH OF YERSINIA SPECIES OBTAINED 12/28/18 12:53 Stool Vibrio Culture - Final NO GROWTH OF VIBRIO SPECIES OBTAINED 12/28/18 12:53 Stool Escherichia coli 0157 Culture - Final NO GROWTH OF E COLI 0157 OBTAINED 12/27/18 10:20 Blood - Peripheral Venous Blood Culture - Preliminary NO GROWTH OBTAINED AFTER 72 HOURS, INCUBATION TO CONTINUE FOR 2 DAYS. 12/27/18 10:20 Blood - Peripheral Venous Blood Culture - Preliminary NO GROWTH OBTAINED AFTER 72 HOURS, INCUBATION TO CONTINUE FOR 2 DAYS. 12/27/18 10:48 Urine - Urine Clean Catch Urine Culture - Final NO GROWTH OBTAINED Current Medications Acetaminophen (Tylenol -) 650 mg PO Q4H PRN PRN Reason: FEVER Heparin Sodium (Porcine) (Heparin -) 5,000 unit SQ BID [facility] Last Admin: 12/30/18 10:58 Dose: 5,000 unit Ceftriaxone Sodium 2 gm/ (Dextrose) 100 mls @ 200 mls/hr IVPB DAILY [facility]; Protocol Last Admin: 12/29/18 09:56 Dose: 200 mls/hr Sodium Chloride (Normal Saline -) 1,000 mls @ 75 mls/hr IV ASDIR [facility] Last Admin: 12/29/18 21:24 Dose: 75 mls/hr Rosuvastatin Calcium (Crestor -) 5 mg PO HS [facility] Last Admin: 12/29/18 21:25 Dose: 5 mg Thiamine HCl (Vitamin B1 Injection -) 250 mg IVPB TID [facility] Stop: 12/31/18 13:59 Last Admin: 12/30/18 05:24 Dose: [address] scan distended bladder comp fracture L1 hiatal hernia imp/reccd leukocytosis-resolved fever resolved dysuria-persistent send urine naat for chlamydia can switch to po ceftin 500 bid and doxycycline 100 mg po bid for 7 days urology f/u for persistent dysuria Problem List - Problems (1) Fever Code(s): R50.9 - FEVER, UNSPECIFIED (2) Dysuria Code(s): R30.0 - DYSURIA (3) Diarrhea Code(s): R19.7 - DIARRHEA, UNSPECIFIED Qualifiers: Diarrhea type: unspecified type Qualified Code(s): R19.7 - Diarrhea, unspecified (4) Homelessness Code(s): Z59.0 - HOMELESSNESS
--- NOTE | 2018-12-30 11:51 | PN ---
Progress Note (short form) - Note Progress Note: NEUROLOGY PROGRESS: Events reviewed and discussed with SHAI Casas. ID and cardiology consults read and appreciated. Remains on thiamine protocol. Also on IV ceftriaxone for persistent dysuria, however BC x 2, UC, and stool cytologies negative. WBC count now down to 6 and afebrile. U/S of bladder showed bladder debris (?) CT of abdomen/pelvis revealed hiatal hernia, distended bladder and L1 compression fracture of uncertain period of time. BP 117/58; supine 90/46, sitting 100/46; standing 111/61 NEURO: Awake, alert, responsive. OX [facility]. Dec 29 or 2018. TRUMP Poor reversals. 06/26 recall @ 5 min. CNII-CNXII: Reduced threat to blink from left but full mcgarry. No facial. Gag ok. Motor: Spastic hemiparesis on L. Reflexes brisk L > R. Strength normal. Coordination: No R FTN dystaxia Sensation: Reduced vibration toes. Romberg + Gait: Unsteady, variable. Impression: 1.Mild B/L Cerebral dysfunction Multifocal gait ataxia with contributions of: 2. 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 Peripheral Neuropathy (nutritional) 4. Orthostatic hypotension on admission. Now resolved. Suggest: Continue thiamine protocol Continue antibiotics and hydration per ID PT eval for gait safety with walker clinical services director eval for possible SNF placement Thank you very much, Robert Young MD
--- NOTE | 2018-12-30 12:38 | PN ---
Progress Note, Physician Chief Complaint: patient seen and exmined persistent dysuria - Current Medication List Current Medications: Active Medications Acetaminophen (Tylenol -) 650 mg PO Q4H PRN PRN Reason: FEVER Heparin Sodium (Porcine) (Heparin -) 5,000 unit SQ BID [facility] Last Admin: 12/30/18 10:58 Dose: 5,000 unit Ceftriaxone Sodium 2 gm/ (Dextrose) 100 mls @ 200 mls/hr IVPB DAILY [facility]; Protocol Last Admin: 12/29/18 09:56 Dose: 200 mls/hr Sodium Chloride (Normal Saline -) 1,000 mls @ 75 mls/hr IV ASDIR [facility] Last Admin: 12/29/18 21:24 Dose: 75 mls/hr Rosuvastatin Calcium (Crestor -) 5 mg PO HS [facility] Last Admin: 12/29/18 21:25 Dose: 5 mg Thiamine HCl (Vitamin B1 Injection -) 250 mg IVPB TID [facility] Stop: 12/31/18 13:59 Last Admin: 12/30/18 05:24 Dose: 250 mg - Objective Vital Signs: Vital Signs Temperature 98.6 F 12/30/18 05:48 Pulse Rate 67 12/30/18 05:48 Respiratory Rate 18 12/30/18 05:48 Blood Pressure 117/58 L 12/30/18 05:48 O2 Sat by Pulse Oximetry (%) 95 12/29/18 21:00 Constitutional: Yes: Calm Cardiovascular: Yes: Regular Rate and Rhythm, S1, S2 Respiratory: Yes: CTA Bilaterally Gastrointestinal: Yes: Normal Bowel Sounds, Soft Edema: No Neurological: Yes: Alert Labs: CBC, BMP 12/30/18 07:00 12/30/18 07:00 INR, PTT INR 1.25 (0.83-1.09) H 12/27/18 10:20 Problem List - Problems (1) Dysuria Assessment/Plan: ceftin 500mg po bid and doxycycline 100mg po bid for 7 days urology follow up Code(s): R30.0 - DYSURIA (2) Neuropathy Assessment/Plan: seen by neurology thiamine will need snf placement Code(s): G62.9 - POLYNEUROPATHY, UNSPECIFIED (3) HLD (hyperlipidemia) Assessment/Plan: crestor Code(s): E78.5 - HYPERLIPIDEMIA, UNSPECIFIED
[2018-12-30] MEDS: CEFTRIAXONE 2 GM in DEXTROSE 5%-WATER 100 ML IVPB SCH (15:00)
--- NOTE | 2018-12-30 15:08 | PN ---
Progres Note Chief Complaint: dysuria History of Present Illness: pt still c/o dysuria, ct shows bladder distention - Objective Vital Signs: Vital Signs Temperature 98.6 F 12/30/18 05:48 Pulse Rate 67 12/30/18 05:48 Respiratory Rate 18 12/30/18 05:48 Blood Pressure 117/58 L 12/30/18 05:48 O2 Sat by Pulse Oximetry (%) 95 12/29/18 21:00 Constitutional: Yes: Well Nourished, Calm Gastrointestinal: Yes: Normal Bowel Sounds, Soft Genitourinary: Yes: WNL. No: Bladder Distention Kidneys: Yes: WNL Pelvis: Yes: WNL Testicles: Yes: WNL Scrotum: Yes: WNL Penis: Yes: WNL Labs/Additional Data: CBC, BMP 12/30/18 07:00 12/30/18 07:00 INR, PTT INR 1.25 (0.83-1.09) H 12/27/18 10:20 Imaging - Results Cat Scan: Report Reviewed, Image Reviewed Problem List - Problems (1) Sterile pyuria Assessment/Plan: ur cx neg Code(s): N39.0 - URINARY TRACT INFECTION, SITE NOT SPECIFIED (2) Dysuria Assessment/Plan: rx pyridium Code(s): R30.0 - DYSURIA (3) Incomplete bladder emptying Assessment/Plan: rx tamsulosin .4 qd, f/u in my office after disch for cystoscopy, trus, uroflow and pvr, he may need turp vs urolift Code(s): R33.9 - RETENTION OF URINE, UNSPECIFIED
[2018-12-30] MEDS: PHENAZOPYRIDINE HCL 100 MG TABLET (FP) PO SCH (18:12)
[2018-12-30] MEDS: DOXYCYCLINE HYCLATE 100 MG CAPSULE PO SCH (18:12)
[2018-12-30] MEDS: ROSUVASTATIN CA 5 MG TABLET (FP) PO SCH (21:46)
[2018-12-30] MEDS: CEFUROXIME AXETIL 500 MG TABLET PO SCH (21:46)
[2018-12-30] MEDS: THIAMINE HCL 200 MG/2 ML VIAL IM SCH (21:46)
[2018-12-31] MEDS: THIAMINE HCL 200 MG/2 ML VIAL IM SCH ×2 (06:28→13:29)
[2018-12-31] MEDS ORDERED: PT OWN MED DRAWER 7, Y5N ONE (09:48)
[2018-12-31] MEDS: TAMSULOSIN HCL 0.4 MG CAP PO SCH (09:54)
[2018-12-31] MEDS: CEFUROXIME AXETIL 500 MG TABLET PO SCH ×2 (09:54→21:42)
[2018-12-31] MEDS: PHENAZOPYRIDINE HCL 100 MG TABLET (FP) PO SCH ×3 (09:54→18:03)
[2018-12-31] MEDS: HEPARIN NA (PORCINE) 5,000 UNITS/ML 1ML VIAL SQ SCH (09:55)
[2018-12-31] MEDS: DOXYCYCLINE HYCLATE 100 MG CAPSULE PO SCH ×2 (09:55→18:03)
--- NOTE | 2018-12-31 11:26 | PN ---
Progress Note, Physician - Current Medication List Current Medications: Active Medications Acetaminophen (Tylenol -) 650 mg PO Q4H PRN PRN Reason: FEVER Cefuroxime Axetil (Ceftin -) 500 mg PO BID [facility] Last Admin: 12/31/18 09:54 Dose: 500 mg Doxycycline Hyclate (Vibramycin -) 100 mg PO BID@1000,1800 [facility] Last Admin: 12/31/18 09:55 Dose: 100 mg Heparin Sodium (Porcine) (Heparin -) 5,000 unit SQ BID [facility] Last Admin: 12/31/18 09:55 Dose: 5,000 unit Phenazopyridine HCl (Pyridium -) 100 mg PO PC [facility] Last Admin: 12/31/18 09:54 Dose: 100 mg Rosuvastatin Calcium (Crestor -) 5 mg PO HS [facility] Last Admin: 12/30/18 21:46 Dose: 5 mg Tamsulosin HCl (Flomax -) 0.4 mg PO DAILY@0830 [facility] Last Admin: 12/31/18 09:54 Dose: 0.4 mg Thiamine HCl (Vitamin B1 Injection -) 250 mg IM TID [facility] Stop: 12/31/18 21:59 Last Admin: 12/31/18 06:28 Dose: 250 mg - Objective Vital Signs: Vital Signs Temperature 98.6 F 12/31/18 06:00 Pulse Rate 62 12/31/18 06:00 Respiratory Rate 18 12/31/18 06:00 Blood Pressure 126/65 12/31/18 06:00 O2 Sat by Pulse Oximetry (%) 95 12/30/18 21:00 Labs: CBC, BMP 12/30/18 07:00 12/30/18 07:00 INR, PTT INR 1.25 (0.83-1.09) H 12/27/18 10:20 Assessment/Plan - Problems (1) Dysuria Assessment/Plan: ceftin 500mg po bid and doxycycline 100mg po bid for 7 days urology follow up Code(s): R30.0 - DYSURIA (2) Neuropathy Assessment/Plan: seen by neurology thiamine will need snf placement Code(s): G62.9 - POLYNEUROPATHY, UNSPECIFIED (3) HLD (hyperlipidemia) Assessment/Plan: crestor Code(s): E78.5 - HYPERLIPIDEMIA, UNSPECIFIED (4) Thrombocytopnia Assessment/Plan: monitor labs dc heparin hem consult
[2018-12-31] MEDS: ROSUVASTATIN CA 5 MG TABLET (FP) PO SCH (21:42)
--- NOTE | 2019-01-01 00:02 | CONSULT ---
Consult Consult Specialty:: Heme Referred by:: Dr. Lema Reason for Consultation:: Thrombocytopenia - History of Present Illness History of Present Illness: 73M with HTN and hx CVAs admitted after a mechanical fall and new incontinence. Febrile on admission. Reported dysuria and found to have incomplete bladder emptying. Started on Ceftin and doxycycline for ?UTI. Bcx neg. Hematology consulted for thrombocytopenia. Plt count was 259 on admission (12/27) and trended down to 119 yesterday. Also with mild macrocytic anemia. B12 382. Started on B12. Pt not aware of abnormal blood counts in the past. Denies bleeding. - Past Medical History BACKSIDE GRINDER: Yes: CVA Cardio/Vascular: Yes: HTN - Alcohol/Substance Use Hx Alcohol Use: No - Smoking History Smoking history: Never smoked Have you smoked in the past 12 months: No - Social History ADL: Independent History of Recent Travel: No Home Medications - Allergies Allergies/Adverse Reactions: Allergies Allergy/AdvReac Type Severity Reaction Status Date / Time No Known Allergies Allergy Verified 12/27/18 08:27 - Home Medications Home Medications: Ambulatory Orders NK [No Known Home Medication] 12/27/18 Physical Exam Vital Signs: Vital Signs Temperature 97.8 F 12/31/18 21:40 Pulse Rate 70 12/31/18 21:40 Respiratory Rate 18 12/31/18 21:40 Blood Pressure 120/59 L 12/31/18 21:40 O2 Sat by Pulse Oximetry (%) 97 12/31/18 09:00 Constitutional: Yes: No Distress, Calm Eyes: Yes: Conjunctiva Clear Neck: Yes: Supple. No: Lymphadenopathy Cardiovascular: Yes: Regular Rate and Rhythm Respiratory: Yes: Regular, CTA Bilaterally Gastrointestinal: Yes: Soft. No: Tenderness Edema: No Labs: CBC, BMP 12/30/18 07:00 12/30/18 07:00 Assessment/Plan 73M with HTN and hx CVAs admitted with ?UTI. Developed mild thrombocytopenia. Likely 2/2 infection or Abx. Less likely 2/2 heparin SQ. Discontinued. No labs drawn today. Please obtain CBC. Ordered folic acid, retics for further eval of macrocytic anemia.
[2019-01-01 08:08] LABS: BASO % 1.1 % (0-2.0); EOS % 4.5 % (0-4.5); HEMATOCRIT 34.7 % (35.4-49); HEMOGLOBIN 11.5 GM/dL (11.7-16.9); LYMPH % 39.6 % (8-40); MCH 33.6 pg (25.7-33.7); MCHC 33.1 g/dl (32.0-35.9); MEAN CELL VOLUME 101.5 fl (80-96); MEAN PLT VOLUME 8.8 fl (7.5-11.1); MONO % 14.2 % (3.8-10.2); NEUT % 40.6 % (42.8-82.8); PLATELET COUNT 162 K/MM3 (134-434); RBC 3.42 M/mm3 (4.00-5.60); RDW 14.1 % (11.9-15.9); WHITE BLOOD COUNT 5.6 K/mm3 (4.0-10.0)
[2019-01-01] MEDS ORDERED: PT OWN MED DRAWER 7, Y5N ONE (08:41)
[2019-01-01] MEDS: TAMSULOSIN HCL 0.4 MG CAP PO SCH (08:57)
[2019-01-01] MEDS: PHENAZOPYRIDINE HCL 100 MG TABLET (FP) PO SCH ×3 (08:57→17:44)
[2019-01-01] MEDS: CEFUROXIME AXETIL 500 MG TABLET PO SCH ×2 (10:12→21:17)
[2019-01-01] MEDS: DOXYCYCLINE HYCLATE 100 MG CAPSULE PO SCH ×2 (10:12→17:44)
--- NOTE | 2019-01-01 11:38 | PN ---
Progress Note, Physician - Current Medication List Current Medications: Active Medications Acetaminophen (Tylenol -) 650 mg PO Q4H PRN PRN Reason: FEVER Cefuroxime Axetil (Ceftin -) 500 mg PO BID [facility] Last Admin: 01/01/19 10:12 Dose: 500 mg Cyanocobalamin (Vitamin B12 Injection -) 1,000 mcg IM Q7D@1000 [facility] Doxycycline Hyclate (Vibramycin -) 100 mg PO BID@1000,1800 [facility] Last Admin: 01/01/19 10:12 Dose: 100 mg Phenazopyridine HCl (Pyridium -) 100 mg PO PC [facility] Last Admin: 01/01/19 08:57 Dose: 100 mg Rosuvastatin Calcium (Crestor -) 5 mg PO HS [facility] Last Admin: 12/31/18 21:42 Dose: 5 mg Tamsulosin HCl (Flomax -) 0.4 mg PO DAILY@0830 [facility] Last Admin: 01/01/19 08:57 Dose: 0.4 mg - Objective Vital Signs: Vital Signs Temperature 98.1 F 01/01/19 08:54 Pulse Rate 64 01/01/19 08:54 Respiratory Rate 18 01/01/19 08:54 Blood Pressure 115/60 01/01/19 08:54 O2 Sat by Pulse Oximetry (%) 97 01/01/19 09:00 Cardiovascular: Yes: Regular Rate and Rhythm Respiratory: Yes: Regular, CTA Bilaterally Gastrointestinal: Yes: Normal Bowel Sounds, Soft. No: Tenderness Labs: CBC, BMP 01/01/19 07:20 12/30/18 07:00 INR, PTT INR 1.25 (0.83-1.09) H 12/27/18 10:20 Assessment/Plan - Problems (1) Dysuria Assessment/Plan: ceftin 500mg po bid and doxycycline 100mg po bid for 7 days urology follow up Code(s): R30.0 - DYSURIA (2) Neuropathy Assessment/Plan: seen by neurology thiamine will need snf placement Code(s): G62.9 - POLYNEUROPATHY, UNSPECIFIED (3) HLD (hyperlipidemia) Assessment/Plan: crestor Code(s): E78.5 - HYPERLIPIDEMIA, UNSPECIFIED (4) Thrombocytopnia Assessment/Plan: monitor labs dc heparin hem consult
[2019-01-01] MEDS: ROSUVASTATIN CA 5 MG TABLET (FP) PO SCH (21:17)
[2019-01-02 08:13] LABS: BASO % 1.1 % (0-2.0); EOS % 3.6 % (0-4.5); HEMATOCRIT 37.7 % (35.4-49); HEMOGLOBIN 12.6 GM/dL (11.7-16.9); MCH 34.2 pg (25.7-33.7); MCHC 33.5 g/dl (32.0-35.9); MEAN CELL VOLUME 102.1 fl (80-96); MEAN PLT VOLUME 8.7 fl (7.5-11.1); MONO % 12.1 % (3.8-10.2); NEUT % 39.2 % (42.8-82.8); PLATELET COUNT 224 K/MM3 (134-434); RBC 3.69 M/mm3 (4.00-5.60); RDW 14.2 % (11.9-15.9); RETICULOCYTES 0.69 % (0.5-1.5)
[2019-01-02] MEDS ORDERED: PT OWN MED DRAWER 7, Y5N ONE ×2 (08:37→17:20)
[2019-01-02] MEDS: TAMSULOSIN HCL 0.4 MG CAP PO SCH (09:15)
[2019-01-02] MEDS: CEFUROXIME AXETIL 500 MG TABLET PO SCH ×2 (09:16→21:56)
[2019-01-02] MEDS: PHENAZOPYRIDINE HCL 100 MG TABLET (FP) PO SCH ×3 (09:16→18:04)
--- NOTE | 2019-01-02 11:56 | PN ---
Progress Note, Physician Chief Complaint: Mechanical Fall Fever Leukocytosis History of Present Illness: Previous notes and events reviewed awake and alert NAD complain of mild dysuria afebrile no leukocytosis PO antibiotics - Current Medication List Current Medications: Active Medications Acetaminophen (Tylenol -) 650 mg PO Q4H PRN PRN Reason: FEVER Cefuroxime Axetil (Ceftin -) 500 mg PO BID [facility] Last Admin: 01/02/19 09:16 Dose: 500 mg Cyanocobalamin (Vitamin B12 Injection -) 1,000 mcg IM Q7D@1000 [facility] Doxycycline Hyclate (Vibramycin -) 100 mg PO BID@1000,1800 [facility] Last Admin: 01/01/19 17:44 Dose: 100 mg Phenazopyridine HCl (Pyridium -) 100 mg PO PC [facility] Last Admin: 01/02/19 09:16 Dose: 100 mg Rosuvastatin Calcium (Crestor -) 5 mg PO HS [facility] Last Admin: 01/01/19 21:17 Dose: 5 mg Tamsulosin HCl (Flomax -) 0.4 mg PO DAILY@0830 [facility] Last Admin: 01/02/19 09:15 Dose: 0.4 mg - Objective Vital Signs: Vital Signs Temperature 97.4 F L 01/02/19 08:57 Pulse Rate 78 01/02/19 08:57 Respiratory Rate 18 01/02/19 08:57 Blood Pressure 141/78 01/02/19 08:57 O2 Sat by Pulse Oximetry (%) 97 01/01/19 09:00 Constitutional: Yes: No Distress, Calm Eyes: Yes: Conjunctiva Clear HENT: Yes: Atraumatic Cardiovascular: Yes: Regular Rate and Rhythm Respiratory: Yes: Regular, CTA Bilaterally Gastrointestinal: Yes: Normal Bowel Sounds, Soft Musculoskeletal: Yes: Muscle Weakness Extremities: Yes: WNL Edema: No Neurological: Yes: Alert, Pre-Existing Deficit, Weakness (L side deficit) Psychiatric: Yes: Alert, Oriented Labs: CBC, BMP 01/02/19 07:25 12/30/18 07:00 INR, PTT INR 1.25 (0.83-1.09) H 12/27/18 10:20 Microbiology 12/27/18 10:20 Blood - Peripheral Venous Blood Culture - Final NO GROWTH AFTER 5 DAYS INCUBATION 12/27/18 10:20 Blood - Peripheral Venous Blood Culture - Final NO GROWTH AFTER 5 DAYS INCUBATION 12/28/18 12:53 Stool Salmonella/Shigella Culture - Final NO GROWTH OF SALMONELLA OR SHIGELLA SPECIES OBTAINED 12/28/18 12:53 Stool Campylobacter Culture - Final NO GROWTH OF CAMPYLOBACTER SPECIES OBTAINED 12/28/18 12:53 Stool Yersinia Culture - Final NO GROWTH OF YERSINIA SPECIES OBTAINED 12/28/18 12:53 Stool Vibrio Culture - Final NO GROWTH OF VIBRIO SPECIES OBTAINED 12/28/18 12:53 Stool Escherichia coli 0157 Culture - Final NO GROWTH OF E COLI 0157 OBTAINED 12/27/18 10:48 Urine - Urine Clean Catch Urine Culture - Final NO GROWTH OBTAINED Problem List - Problems (1) Diarrhea Assessment/Plan: -Stool Cultures and Cdiff neg -resolved -ID on board -no leukocytosis Code(s): R19.7 - DIARRHEA, UNSPECIFIED Qualifiers: Diarrhea type: unspecified type Qualified Code(s): R19.7 - Diarrhea, unspecified (2) Fall Assessment/Plan: -Fall risk -Neurology and Cardiology consult -Carotid US shows moderate to large plaque with calcificationsat the right common carotid bifurcation/bulb without evidence of hemodynamically significant stenosis, moderate size plaque to at denny left common carotid bifurcation buld without evidence of hemodynamically significant stenosis -Head CT scan shows large area of encephalomalacia in the right posterior temporal as well as in the right frontal lobe extending to the high convexity cuts also involving the right occipital and parietal lobe with exvacuodilatation of the right occipital horn, no gross acute intracranial pathology -PT -will need SNF Code(s): W19.XXXA - UNSPECIFIED FALL, INITIAL ENCOUNTER Qualifiers: Encounter type: initial encounter Qualified Code(s): W19.XXXA - Unspecified fall, initial encounter (3) Homelessness Assessment/Plan: -SW consult Code(s): Z59.0 - HOMELESSNESS (4) Dysuria Assessment/Plan: -UA shows 1+ leuks -UC neg -Bladder US shws moderately distended urinary bladder wall without thickening, there are debris lying posteriorly -Pyridium -Tamsulosin -Urology on board -PO ABT Code(s): R30.0 - DYSURIA (5) Fever Assessment/Plan: -ID on board -PO ABT -no leukocytosis -BC and UC neg -Abd/Pelvic CT scan shows large hiatal hernia, distended bladder, large right inguinal hernia containing non-obstructed bowel loops, compression fracture L1, no evidence of intraabdominal abscess or acute pathology Code(s): R50.9 - FEVER, UNSPECIFIED (6) Thrombocytopenia Assessment/Plan: -Plt 224 -Hematology on board Code(s): D69.6 - THROMBOCYTOPENIA, UNSPECIFIED Assessment/Plan see problem list dvt ppx begin d/c planning to SNF
[2019-01-02] MEDS: DOXYCYCLINE HYCLATE 100 MG CAPSULE PO SCH ×2 (12:36→18:04)
[2019-01-02] MEDS: ROSUVASTATIN CA 5 MG TABLET (FP) PO SCH (21:57)
[2019-01-03 08:37] LABS: HEMATOCRIT 35.1 % (35.4-49); HEMOGLOBIN 11.8 GM/dL (11.7-16.9); MCH 34.2 pg (25.7-33.7); MCHC 33.7 g/dl (32.0-35.9); MEAN CELL VOLUME 101.8 fl (80-96); MEAN PLT VOLUME 8.7 fl (7.5-11.1); PLATELET COUNT 254 K/MM3 (134-434); RBC 3.45 M/mm3 (4.00-5.60); RDW 14.2 % (11.9-15.9)
[2019-01-03 08:38] LABS: ALBUMIN 2.9 g/dl (3.4-5.0); BILIRUBIN,TOTAL 0.3 mg/dL (0.2-1); BLOOD UREA NITROGEN 25.8 mg/dL (7-18); CALCIUM 8.7 mg/dL (8.5-10.1); CREATININE 0.9 mg/dL (0.55-1.3); POTASSIUM 4.2 mmol/L (3.5-5.1)
[2019-01-03] MEDS: TAMSULOSIN HCL 0.4 MG CAP PO SCH (10:53)
[2019-01-03] MEDS: DOXYCYCLINE HYCLATE 100 MG CAPSULE PO SCH ×2 (10:53→17:55)
[2019-01-03] MEDS: CEFUROXIME AXETIL 500 MG TABLET PO SCH ×2 (10:53→21:32)
[2019-01-03] MEDS: PHENAZOPYRIDINE HCL 100 MG TABLET (FP) PO SCH ×3 (10:57→17:58)
--- NOTE | 2019-01-03 14:45 | PN ---
Progress Note, Physician Chief Complaint: Mechanical Fall Fever Leukocytosis History of Present Illness: Previous notes and events reviewed awake and alert NAD continue with mild dysuria afebrile no leukocytosis PO antibiotics - Current Medication List Current Medications: Active Medications Acetaminophen (Tylenol -) 650 mg PO Q4H PRN PRN Reason: FEVER Cefuroxime Axetil (Ceftin -) 500 mg PO BID [facility] Last Admin: 01/03/19 10:53 Dose: 500 mg Cyanocobalamin (Vitamin B12 Injection -) 1,000 mcg IM Q7D@1000 [facility] Doxycycline Hyclate (Vibramycin -) 100 mg PO BID@1000,1800 [facility] Last Admin: 01/03/19 10:53 Dose: 100 mg Phenazopyridine HCl (Pyridium -) 100 mg PO PC [facility] Last Admin: 01/03/19 14:34 Dose: 100 mg Rosuvastatin Calcium (Crestor -) 5 mg PO HS [facility] Last Admin: 01/02/19 21:57 Dose: 5 mg Tamsulosin HCl (Flomax -) 0.4 mg PO DAILY@0830 [facility] Last Admin: 01/03/19 10:53 Dose: 0.4 mg - Objective Vital Signs: Vital Signs Temperature 98.6 F 01/03/19 13:44 Pulse Rate 75 01/03/19 13:44 Respiratory Rate 20 01/03/19 13:44 Blood Pressure 105/54 L 01/03/19 13:44 O2 Sat by Pulse Oximetry (%) 94 L 01/02/19 21:00 Constitutional: Yes: No Distress, Calm Eyes: Yes: Conjunctiva Clear HENT: Yes: Atraumatic Cardiovascular: Yes: Regular Rate and Rhythm Respiratory: Yes: Regular, CTA Bilaterally Gastrointestinal: Yes: Normal Bowel Sounds, Soft Musculoskeletal: Yes: Muscle Weakness Extremities: Yes: WNL Edema: No Neurological: Yes: Alert, Oriented, Pre-Existing Deficit Psychiatric: Yes: Alert, Oriented Labs: CBC, BMP 01/03/19 07:50 01/03/19 07:50 INR, PTT INR 1.25 (0.83-1.09) H 12/27/18 10:20 Microbiology 12/27/18 10:20 Blood - Peripheral Venous Blood Culture - Final NO GROWTH AFTER 5 DAYS INCUBATION 12/27/18 10:20 Blood - Peripheral Venous Blood Culture - Final NO GROWTH AFTER 5 DAYS INCUBATION 12/28/18 12:53 Stool Salmonella/Shigella Culture - Final NO GROWTH OF SALMONELLA OR SHIGELLA SPECIES OBTAINED 12/28/18 12:53 Stool Campylobacter Culture - Final NO GROWTH OF CAMPYLOBACTER SPECIES OBTAINED 12/28/18 12:53 Stool Yersinia Culture - Final NO GROWTH OF YERSINIA SPECIES OBTAINED 12/28/18 12:53 Stool Vibrio Culture - Final NO GROWTH OF VIBRIO SPECIES OBTAINED 12/28/18 12:53 Stool Escherichia coli 0157 Culture - Final NO GROWTH OF E COLI 0157 OBTAINED 12/27/18 10:48 Urine - Urine Clean Catch Urine Culture - Final NO GROWTH OBTAINED Problem List - Problems (1) Diarrhea Assessment/Plan: -Stool Cultures and Cdiff neg -resolved -ID on board -no leukocytosis Code(s): R19.7 - DIARRHEA, UNSPECIFIED Qualifiers: Diarrhea type: unspecified type Qualified Code(s): R19.7 - Diarrhea, unspecified (2) Fall Assessment/Plan: -Fall risk -Neurology and Cardiology consult -Carotid US shows moderate to large plaque with calcificationsat the right common carotid bifurcation/bulb without evidence of hemodynamically significant stenosis, moderate size plaque to at denny left common carotid bifurcation buld without evidence of hemodynamically significant stenosis -Head CT scan shows large area of encephalomalacia in the right posterior temporal as well as in the right frontal lobe extending to the high convexity cuts also involving the right occipital and parietal lobe with exvacuodilatation of the right occipital horn, no gross acute intracranial pathology -PT -will need SNF Code(s): W19.XXXA - UNSPECIFIED FALL, INITIAL ENCOUNTER Qualifiers: Encounter type: initial encounter Qualified Code(s): W19.XXXA - Unspecified fall, initial encounter (3) Homelessness Assessment/Plan: -SW consult Code(s): Z59.0 - HOMELESSNESS (4) Dysuria Assessment/Plan: -UA shows 1+ leuks -UC neg -Bladder US shws moderately distended urinary bladder wall without thickening, there are debris lying posteriorly -Pyridium -Tamsulosin -Urology on board -PO ABT Code(s): R30.0 - DYSURIA (5) Fever Assessment/Plan: -ID on board -PO ABT -no leukocytosis -BC and UC neg -Abd/Pelvic CT scan shows large hiatal hernia, distended bladder, large right inguinal hernia containing non-obstructed bowel loops, compression fracture L1, no evidence of intraabdominal abscess or acute pathology Code(s): R50.9 - FEVER, UNSPECIFIED (6) Thrombocytopenia Assessment/Plan: -Plt 254 -Hematology on board Code(s): D69.6 - THROMBOCYTOPENIA, UNSPECIFIED Assessment/Plan see problem list dvt ppx begin d/c planning to SNF
[2019-01-03] MEDS ORDERED: PT OWN MED DRAWER 7, Y5N ONE (17:31)
[2019-01-03] MEDS: ROSUVASTATIN CA 5 MG TABLET (FP) PO SCH (21:32)
[2019-01-04 07:32] LABS: HEMATOCRIT 35.6 % (35.4-49); MCH 33.8 pg (25.7-33.7); MCHC 33.6 g/dl (32.0-35.9); MEAN CELL VOLUME 100.5 fl (80-96); PLATELET COUNT 308 K/MM3 (134-434); RBC 3.54 M/mm3 (4.00-5.60); RDW 14.2 % (11.9-15.9)
[2019-01-04 08:10] LABS: BILIRUBIN,TOTAL 0.4 mg/dL (0.2-1); BLOOD UREA NITROGEN 27.9 mg/dL (7-18); CALCIUM 8.8 mg/dL (8.5-10.1); CREATININE 0.9 mg/dL (0.55-1.3); POTASSIUM 4.3 mmol/L (3.5-5.1); TOT PROT 7.4 g/dl (6.4-8.2)
[2019-01-04] MEDS: PHENAZOPYRIDINE HCL 100 MG TABLET (FP) PO SCH ×3 (09:16→18:01)
[2019-01-04] MEDS: DOXYCYCLINE HYCLATE 100 MG CAPSULE PO SCH ×2 (09:16→18:01)
[2019-01-04] MEDS: TAMSULOSIN HCL 0.4 MG CAP PO SCH (09:16)
[2019-01-04] MEDS: CEFUROXIME AXETIL 500 MG TABLET PO SCH ×2 (09:16→22:48)
--- NOTE | 2019-01-04 14:42 | PN ---
Progress Note, Physician - Current Medication List Current Medications: Active Medications Acetaminophen (Tylenol -) 650 mg PO Q4H PRN PRN Reason: FEVER Last Admin: 01/03/19 17:55 Dose: 650 mg Cefuroxime Axetil (Ceftin -) 500 mg PO BID [facility] Last Admin: 01/04/19 09:16 Dose: 500 mg Cyanocobalamin (Vitamin B12 Injection -) 1,000 mcg IM Q7D@1000 [facility] Doxycycline Hyclate (Vibramycin -) 100 mg PO BID@1000,1800 [facility] Last Admin: 01/04/19 09:16 Dose: 100 mg Phenazopyridine HCl (Pyridium -) 100 mg PO PC [facility] Last Admin: 01/04/19 09:16 Dose: 100 mg Rosuvastatin Calcium (Crestor -) 5 mg PO HS [facility] Last Admin: 01/03/19 21:32 Dose: 5 mg Tamsulosin HCl (Flomax -) 0.4 mg PO DAILY@0830 [facility] Last Admin: 01/04/19 09:16 Dose: 0.4 mg - Objective Vital Signs: Vital Signs Temperature 98.4 F 01/04/19 06:00 Pulse Rate 63 01/04/19 06:00 Respiratory Rate 20 01/04/19 06:00 Blood Pressure 99/49 L 01/04/19 06:00 O2 Sat by Pulse Oximetry (%) 95 01/03/19 21:00 Labs: CBC, BMP 01/04/19 06:15 01/04/19 06:15 INR, PTT INR 1.25 (0.83-1.09) H 12/27/18 10:20 Problem List - Problems (1) Diarrhea Code(s): R19.7 - DIARRHEA, UNSPECIFIED Qualifiers: Diarrhea type: unspecified type Qualified Code(s): R19.7 - Diarrhea, unspecified (2) Fall Assessment/Plan: -Fall risk -fall seconday to old cva with hemiparesis -Neurology and Cardiology consult -Carotid US -Head CT scan shows large area of encephalomalacia in the right posterior temporal as well as in the right frontal lobe extending to the high convexity cuts also involving the right occipital and parietal lobe with exvacuodilatation of the right occipital horn, no gross acute intracranial pathology -PT Code(s): W19.XXXA - UNSPECIFIED FALL, INITIAL ENCOUNTER Qualifiers: Encounter type: initial encounter Qualified Code(s): W19.XXXA - Unspecified fall, initial encounter (3) Homelessness Code(s): Z59.0 - HOMELESSNESS (4) Dysuria Code(s): R30.0 - DYSURIA (5) Fever Code(s): R50.9 - FEVER, UNSPECIFIED (6) Thrombocytopenia Code(s): D69.6 - THROMBOCYTOPENIA, UNSPECIFIED (7) Ataxia due to and not concurrent with cerebrovascular accident (CVA) Assessment/Plan: -Fall risk -fall seconday to old cva with hemiparesis -Neurology and Cardiology consult -Carotid US -Head CT scan shows large area of encephalomalacia in the right posterior temporal as well as in the right frontal lobe extending to the high convexity cuts also involving the right occipital and parietal lobe with exvacuodilatation of the right occipital horn, no gross acute intracranial pathology -PT Code(s): I69.393 - ATAXIA FOLLOWING CEREBRAL INFARCTION
--- NOTE | 2019-01-04 15:43 | DS ---
Physical Examination Vital Signs: Vital Signs Temperature 98.4 F 01/04/19 14:23 Pulse Rate 81 01/04/19 14:23 Respiratory Rate 18 01/04/19 14:23 Blood Pressure 112/57 L 01/04/19 14:23 O2 Sat by Pulse Oximetry (%) 95 01/03/19 21:00 Constitutional: Yes: No Distress, Calm Eyes: Yes: Conjunctiva Clear HENT: Yes: Atraumatic Cardiovascular: Yes: Regular Rate and Rhythm Respiratory: Yes: Regular, CTA Bilaterally Gastrointestinal: Yes: Normal Bowel Sounds, Soft Musculoskeletal: Yes: Muscle Weakness Extremities: Yes: WNL Edema: No Neurological: Yes: Alert, Oriented Psychiatric: Yes: Alert, Oriented Labs: CBC, BMP 01/04/19 06:15 01/04/19 06:15 Discharge Summary Reason For Visit: DIARRHEA HOMELESS FALL Current Active Problems Closed head injury (Acute) Diarrhea (Acute) Dysuria (Acute) Fall (Acute) Fever (Acute) HLD (hyperlipidemia) (Acute) Homelessness (Acute) Incomplete bladder emptying (Acute) Neuropathy (Acute) Sterile pyuria (Acute) Thrombocytopenia (Acute) Hospital Course: Patient is a 73 y/o male with past medical history of HTN and Multiple CVAs. Patient presented to ER after having mechanical fall yesterday, denies hitting head and denies LOC. Patient states he then tried to walk to [employer] and attempted to use bathroom but became incontinent of urine and fecal contents. While in [employer] he then had an episode of dizziness and fell. Patient is undomiciled, does not know which medication he takes for HTN. Patient evaluated by PT while here and walked 75 feet with walker and assistance. Was accepted to SNF for rehab. Condition: Stable - Instructions Diet, Activity, Other Instructions: ceftin 500mg po bid for 7 days doxycyline 100mg po bid for 7 days follow up with pmd return to ER if develop severe pain, chest pain, respiratory distress Referrals: Priscilla Daniels [Primary Care Provider] - Disposition: [facility] - Home Medications Comprehensive Discharge Medication List: Ambulatory Orders Cefuroxime Axetil [Ceftin -] 500 mg PO BID #4 tablet 01/04/19 Doxycycline Hyclate [Vibramycin -] 100 mg PO BID@1000,1800 #4 capsule 01/04/19 Rosuvastatin [Crestor -] 5 mg PO HS #30 tablet 01/04/19 Tamsulosin HCl [Flomax -] 0.4 mg PO DAILY@829 #30 cap.er.24h 01/04/19
[2019-01-04] MEDS: ROSUVASTATIN CA 5 MG TABLET (FP) PO SCH (22:48)
[2019-01-05] MEDS ORDERED: PT OWN MED DRAWER 7, Y5N ONE (08:48)
[2019-01-05] MEDS: TAMSULOSIN HCL 0.4 MG CAP PO SCH (09:26)
[2019-01-05] MEDS: PHENAZOPYRIDINE HCL 100 MG TABLET (FP) PO SCH (09:26)
[2019-01-05] MEDS: CEFUROXIME AXETIL 500 MG TABLET PO SCH (09:26)
[2019-01-05] MEDS: DOXYCYCLINE HYCLATE 100 MG CAPSULE PO SCH (09:26)
[2019-01-05 12:06] VITALS: BP 123/80; PULSE 78; TEMP 98.1
--- NOTE | 2019-01-05 12:32 | PN ---
Progress Note, Physician Chief Complaint: Mechanical Fall Fever Leukocytosis History of Present Illness: Previous notes and events reviewed awake and alert NAD patient being discharged to SNF today - Current Medication List Current Medications: Active Medications Acetaminophen (Tylenol -) 650 mg PO Q4H PRN PRN Reason: FEVER Last Admin: 01/03/19 17:55 Dose: 650 mg Cefuroxime Axetil (Ceftin -) 500 mg PO BID [facility] Last Admin: 01/05/19 09:26 Dose: 500 mg Cyanocobalamin (Vitamin B12 Injection -) 1,000 mcg IM Q7D@1000 [facility] Doxycycline Hyclate (Vibramycin -) 100 mg PO BID@1000,1800 [facility] Last Admin: 01/05/19 09:26 Dose: 100 mg Phenazopyridine HCl (Pyridium -) 100 mg PO PC [facility] Last Admin: 01/05/19 09:26 Dose: 100 mg Rosuvastatin Calcium (Crestor -) 5 mg PO HS [facility] Last Admin: 01/04/19 22:48 Dose: 5 mg Tamsulosin HCl (Flomax -) 0.4 mg PO DAILY@0830 [facility] Last Admin: 01/05/19 09:26 Dose: 0.4 mg - Objective Vital Signs: Vital Signs Temperature 98.1 F 01/05/19 09:04 Pulse Rate 78 01/05/19 09:04 Respiratory Rate 20 01/05/19 09:04 Blood Pressure 123/80 01/05/19 09:04 O2 Sat by Pulse Oximetry (%) 95 01/04/19 21:00 Constitutional: Yes: No Distress, Calm Eyes: Yes: Conjunctiva Clear HENT: Yes: Atraumatic Cardiovascular: Yes: Regular Rate and Rhythm Respiratory: Yes: Regular, CTA Bilaterally Gastrointestinal: Yes: Normal Bowel Sounds, Soft Musculoskeletal: Yes: Muscle Weakness Extremities: Yes: WNL Edema: No Neurological: Yes: Alert, Pre-Existing Deficit, Weakness (L sided weakness) Psychiatric: Yes: Alert, Oriented Labs: CBC, BMP 01/04/19 06:15 01/04/19 06:15 INR, PTT INR 1.25 (0.83-1.09) H 12/27/18 10:20 Microbiology 12/27/18 10:20 Blood - Peripheral Venous Blood Culture - Final NO GROWTH AFTER 5 DAYS INCUBATION 12/27/18 10:20 Blood - Peripheral Venous Blood Culture - Final NO GROWTH AFTER 5 DAYS INCUBATION 12/28/18 12:53 Stool Salmonella/Shigella Culture - Final NO GROWTH OF SALMONELLA OR SHIGELLA SPECIES OBTAINED 12/28/18 12:53 Stool Campylobacter Culture - Final NO GROWTH OF CAMPYLOBACTER SPECIES OBTAINED 12/28/18 12:53 Stool Yersinia Culture - Final NO GROWTH OF YERSINIA SPECIES OBTAINED 12/28/18 12:53 Stool Vibrio Culture - Final NO GROWTH OF VIBRIO SPECIES OBTAINED 12/28/18 12:53 Stool Escherichia coli 0157 Culture - Final NO GROWTH OF E COLI 0157 OBTAINED 12/27/18 10:48 Urine - Urine Clean Catch Urine Culture - Final NO GROWTH OBTAINED Problem List - Problems (1) Diarrhea Assessment/Plan: -Stool Cultures and Cdiff neg -ID on board -no leukocytosis Code(s): R19.7 - DIARRHEA, UNSPECIFIED Qualifiers: Diarrhea type: unspecified type Qualified Code(s): R19.7 - Diarrhea, unspecified (2) Fall Assessment/Plan: -Fall risk -Neurology and Cardiology consult -Carotid US -Head CT scan shows large area of encephalomalacia in the right posterior temporal as well as in the right frontal lobe extending to the high convexity cuts also involving the right occipital and parietal lobe with exvacuodilatation of the right occipital horn, no gross acute intracranial pathology -PT Code(s): W19.XXXA - UNSPECIFIED FALL, INITIAL ENCOUNTER Qualifiers: Encounter type: initial encounter Qualified Code(s): W19.XXXA - Unspecified fall, initial encounter (3) Homelessness Assessment/Plan: -SW consult Code(s): Z59.0 - HOMELESSNESS (4) Dysuria Assessment/Plan: -UA shows 1+ leuks -UC neg Code(s): R30.0 - DYSURIA (5) Fever Assessment/Plan: -ID on board -Ceftin and Dozycycline -no leukocytosis -BC and UC neg Code(s): R50.9 - FEVER, UNSPECIFIED Assessment/Plan see problem list dvt ppx d/c to SNF today
[2019-01-07] MEDS ORDERED: CYANOCOBALAMIN (VITAMIN B-12) 1000 MCG/1 ML VIAL IM SCH (10:00)
== END 2019-01-05 12:41 | DRG 57 ==
LOC: JER 08:01 → JERBED 12:44 → J5S 15:56
PROVIDERS: ADMIT Family Medicine; ATTEND Family Medicine
DX: I69.393 Ataxia following cerebral infarction (principal); G81.14 Spastic hemiplegia affecting left nondominant side; N39.0 Urinary tract infection, site not specified; M48.56XA Collapsed vertebra, not elsewhere classified, lumbar region, initial encounter for fracture; G62.9 Polyneuropathy, unspecified; I10 Essential (primary) hypertension; Z59.0 Homelessness; R30.0 Dysuria; D69.6 Thrombocytopenia, unspecified; W18.09XA Striking against other object with subsequent fall, initial encounter; Y93.89 Activity, other specified; Y92.241 Library as the place of occurrence of the external cause; Y99.8 Other external cause status; R32 Unspecified urinary incontinence; E86.0 Dehydration; R19.7 Diarrhea, unspecified; R15.9 Full incontinence of feces; I69.398 Other sequelae of cerebral infarction; G93.89 Other specified disorders of brain; K44.9 Diaphragmatic hernia without obstruction or gangrene; I95.1 Orthostatic hypotension; D53.9 Nutritional anemia, unspecified
CPT/HCPCS: 36415; 70450-TC; 71045-TC-FY; 73030-TC-LT-FY; 73060-TC-LT-FY; 74176-TC; 76775-TC; 76856-TC; 80053; 81003; 82150; 82550; 82553; 82607; 82746; 82803; 82962; 83036; 83605; 83615; 83690; 83735; 84100; 84153; 84436; 84443; 84484; 85025; 85027; 85044; 85610; 85730; 87040; 87045; 87046; 87086; 87491; 87591; 93005; 93010; 93306-TC; 93880-TC; 97116-GP; 97161-GP; 99282-25; J0131; J1644; J7030